=== PATIENT | female | born 1940 | race Caucasian/White ===

== ENCOUNTER → 2021-02-08 09:00 | Outpatient (BNVA) | payer MEDICARE, SELFPAY | PROVIDERS: PCP Internal Medicine; Referring Provider Internal Medicine; Visit Provider Surgery | DX: L72.0 Epidermal cyst (principal) | CPT/HCPCS: 99202 ==

== ENCOUNTER 2021-02-25 19:05 | Inpatient (IN) | payer MEDICARE, SELFPAY ==
--- NOTE | 2021-02-25 | ECG_ITS ---
Test Reason : DYSPNEA Blood Pressure : / mmHG Vent. Rate : 113 BPM Atrial Rate : 113 BPM P-R Int : 126 ms QRS Dur : 074 ms QT Int : 330 ms P-R-T Axes : -13 000 -03 degrees QTc Int : 452 ms Sinus tachycardia with occasional Premature ventricular complexes Nonspecific ST and T wave abnormality Abnormal ECG When compared with ECG of 02-DEC-2015 14:33, Premature ventricular complexes are now Present Criteria for Anteroseptal infarct are no longer Present ST now depressed in Inferior leads Nonspecific T wave abnormality, worse in Inferior leads Nonspecific T wave abnormality now evident in Lateral leads Referred By: Jacob Mccauley Electronically Signed By:LEVI MULLEN
--- NOTE | ~2021-02-25 | XR_ITS ---
EXAMINATION: XR CHEST CLINICAL INFORMATION: Shortness of breath. COMPARISON: 02/26/2021 chest radiographs. TECHNIQUE: Frontal view of the chest was obtained. FINDINGS: Kyphotic positioning is suboptimal. Mild left basilar linear markings are seen. The right lung is clear. The heart and mediastinal structures are unremarkable. XR/XR chest 1V IMPRESSION: Mild left basilar linear atelectasis versus scarring.
--- NOTE | ~2021-02-25 | XR_ITS ---
EXAMINATION: XR CHEST CLINICAL INFORMATION: Wheezing with rales and rhonchi on the right. COMPARISON: 08/05/2019 TECHNIQUE: 2 views of the chest were obtained. FINDINGS: Cardiac leads overlie the chest. The lungs are well expanded. Bronchial wall thickening noted. There is no focal consolidation, edema, or effusion. No pneumothorax. The cardiomediastinal silhouette is within normal limits. No acute osseous abnormality. Degenerative changes of the shoulders. Possible intra-articular body at the left inferior glenohumeral recesses. XR/XR chest 2V IMPRESSION: No dense consolidation. Bronchial wall thickening can be seen with a small airways process such as asthma or atypical/viral infection.
[2021-02-25 20:31] LABS: COVID-19 Test Negative (Negative)
[2021-02-25 21:21] VITALS: BP 141/75; PULSE 109; RESP 22; TEMP 37.4; O2SAT 93; BMI 26.4
[2021-02-25 21:51] LABS: Basophils Percent Auto 0.1 % (0-2); Hematocrit 38.9 % (37-47); Hemoglobin 12.5 g/dl (12.0-16.0); Imm Gran Abs Auto 0.31 X10*3/uL (0.00-0.03); Imm Gran Pct Auto 1.2 % (0.0-0.4); Lymphocytes Absolute Auto 1.6 X10*3/uL (1.2-4.9); Lymphocytes Percent Auto 6.4 % (20-40); MANUAL DIFF FLAG SCAN; Mean Corpuscular HGB Conc 32.1 g/dl (31.0-35.0); Mean Platelet Volume 10.7 fL (9.4-12.3); Monocytes Absolute Auto 2.1 X10*3/uL (0.1-1.2); Monocytes Percent Auto 8.4 % (2-11); Neutrophils Absolute Auto 21.4 X10*3/uL (2.0-8.3); Neutrophils Percent Auto 83.9 % (45-73); Platelet Count 360 X10*3/uL (160-400); Red Blood Count 4.47 X10*6/uL (4.20-5.50); Red Cell Distribution Width 13.4 % (11.0-16.0); SCAN SMEAR FLAG 1; White Blood Count 25.6 X10*3/uL (4.8-10.8)
[2021-02-25 22:17] LABS: Alanine Aminotransferase 29 U/L (0-31); Albumin Level 3.9 g/dL (3.5-5.0); Alkaline Phosphatase 97 U/L (39-117); Anion Gap 19 (12-20); Aspartate Amino Transferase 15 U/L (5-31); Bilirubin Total 0.7 mg/dL (0.0-1.0); Blood Urea Nitrogen 40 mg/dL (9-16); Calcium 9.5 mg/dL (8.4-10.2); Carbon Dioxide 26 mmol/L (22-29); Chloride 98 mmol/L (96-108); Creatinine Clr Calc Pharmacy 24.7; Estimated Glomerular Filt Rate 37; Glucose Random 407 mg/dL (60-115); Potassium 3.5 mmol/L (3.3-5.1); Sodium 139 mmol/L (135-145); Total Protein 7.3 g/dL (6.5-8.0)
[2021-02-25 22:30] VITALS: BP 158/93; PULSE 116; RESP 20; TEMP 37.1; O2SAT 97
--- NOTE | 2021-02-25 22:42 | ED.SOB ---
HPI - SOB/Dyspnea General Chief Complaint: Dyspnea Stated Complaint: Difficulty breathing Time Seen by Provider: 02/25/21 22:42 Source: patient Mode of arrival: ambulatory Limitations: no limitations History of Present Illness HPI Narrative: Few weeks of increased shortness of breath, now on day 6 of prednisone. patient believes the heat has triggered her shortness of breath. patient is not on oxygen at home. MD elicited complaint: shortness of breath and cough Pertinent past history: COPD, asthma and diabetes Onset (ago): week(s) Timing: constant Severity: moderate Exacerbating factors: exertion Known history of: COPD and asthma Related Data Home Medications Medication Instructions Recorded Confirmed albuterol sulfate 90 mcg/actuation 2 puff PO Q6H PRN 02/25/21 02/25/21 aerosol inhaler budesonide-formoterol HFA 160 2 puff INHALATION BID 02/25/21 02/25/21 mcg-4.5 mcg/actuation aerosol inhaler (Symbicort) glipizide 2.5 mg tablet, extended 1 tab PO DAILY 02/25/21 02/25/21 release 24 hr hydrochlorothiazide 50 mg tablet 1 tab PO DAILY 02/25/21 02/25/21 losartan 25 mg tablet 1 tab PO BID 02/25/21 02/25/21 Allergies Allergy/AdvReac Type Severity Reaction Status Date / Time latex [LATEX] Allergy Severe RASH, Verified 02/08/21 09:12 DIFFICULTY BREATHING cortisone [Cortisone] Allergy Mild HIVES Verified 02/08/21 09:12 prednisone [PREDNISONE] Allergy Mild RASH, Verified 02/08/21 09:12 rash- has taken this med since without reaction Review of Systems Constitutional: Constitutional: Reports no additional constitutional complaints Eyes: Eyes: Reports no additional eye complaints ENT: Denies dizziness Cardiovascular: Cardiovascular: Reports no additional cardiovascular complaints Respiratory: Respiratory: Reports as per HPI Gastrointestinal: Gastrointestinal: Reports no additional gastrointestinal complaints Genitourinary: Genitourinary: Reports no additional female genitourinary complaints Musculoskeletal: Musculoskeletal: Reports no additional musculoskeletal complaints Integumentary/Breasts: Skin/Breast: Denies rash Neurologic: Reports system reviewed and no additional complaints, except as documented, Denies dizziness and Denies Sensory deficit (Neuro) Psychiatric: Psychiatric: Denies anxiety PMFSH Past Medical History Medical History Asthma Benign essential hypertension Diabetes mellitus Epidermoid cyst of face Hyperlipidemia Low back pain Overweight (BMI 25.0-29.9) Surgical History History of breast lump/mass excision Status post re-excision of malignant skin lesion Family History Family History Sister Breast cancer Other Family history unknown Social History Social History Alcohol intake: never Patient Tobacco Use Status: Never used Tobacco Smoked in Last 30 Days: No Use of substances other than those prescribed or required for medical reasons: No Advance Directives: No Advance Directives Information Provided: Yes Physical Exam Vital Signs: Vital Signs: Last Vital Signs Temp 98.7 F 02/25/21 22:30 Pulse 131 H 02/26/21 02:01 Resp 28 H 02/26/21 02:01 BP 140/88 H 02/26/21 02:01 Pulse Ox 90 L 02/26/21 02:01 Body Mass Index 26.4 Const: Other: elderly female very short of breath, coughing and wheezing Nutritional Appearance: average body habitus Orientation/consciousness: oriented to person and patient oriented x3 Limitations: no limitations HENMT: Head: Yes normal to inspection Ears: external ears normal General nose exam: Normal external nose present Mouth: Normal oral and palatal mucosa present and oropharynx normal Throat: Yes posterior oropharynx normal Eyes: General: appearance normal, both eyes and all related structures Neck: Other: supple Neck: Yes normal visual inspection Chest: Chest palpation & inspection: normal inspection of the chest Resp: Other: slight retractions with diffuse wheezing, rales and rhonchi on the right much worse than mild wheezing on the left. Cardio: Jugular venous distension: no JVD Rate: regular rate Rhythm: regular rhythm Heart sounds: S1 normal heart sound present and S2 normal heart sound present GI: Inspection: Yes normal to inspection Palpation (GI): Soft to palpation, nontender and No hepatosplenomegaly present Auscultation: normal bowel sounds : General: Yes no CVA tenderness Back/Spine/Pelvis: Back: no CVA tenderness Skin: General skin exam: no rashes or lesions noted Neuro: General: oriented to person and patient oriented x3 Cranial nerves: Yes CN's II-XII intact bilaterally Motor exam (neuro): 5/5 motor strength present throughout Sensory Exam: No Sensory deficit (Neuro) Extrem: General: Yes normal to inspection Psych: Appearance: grossly normal Course Reevaluation(s) Reevaluation #1: patient still very short of breath. Despite WBC of 25k and elevated glucose, I believe that these are all the result of prednisone and not sepsis. Will continue nebs and give ceftriaxone Time: 00:56 MDM - SOB/Dyspnea Lab Data Result diagrams: 02/25/21 21:45 02/25/21 21:45 Labs: Lab Results 02/25/21 02/25/21 02/25/21 Range/Units 20:12 21:45 21:45 WBC 25.6 H (4.8-10.8) X10*3/uL RBC 4.47 (4.20-5.50) X10*6/uL Hgb 12.5 (12.0-16.0) g/dl Hct 38.9 (37-47) % MCV 87.0 (80-98) fL MCH 28.0 (27.0-33.0) pg MCHC 32.1 (31.0-35.0) g/dl RDW 13.4 (11.0-16.0) % Plt Count 360 (160-400) X10*3/uL MPV 10.7 (9.4-12.3) fL Immature Gran % (Auto) 1.2 H (0.0-0.4) % Neut % (Auto) 83.9 H (45-73) % Lymph % (Auto) 6.4 L (20-40) % [place] % (Auto) 8.4 (2-11) % Eos % (Auto) 0.0 (0-4) % Baso % (Auto) 0.1 (0-2) % Lymph # (Auto) 1.6 (1.2-4.9) X10*3/uL [place] # (Auto) 2.1 H (0.1-1.2) X10*3/uL Eos # (Auto) 0.0 (0.0-0.4) X10*3/uL Baso # (Auto) 0.0 (0.0-0.2) X10*3/uL Abs Immat Gran (auto) 0.31 H (0.00-0.03) X10*3/uL Absolute Neuts (auto) 21.4 H (2.0-8.3) X10*3/uL Absolute Nucleated RBC 0.000 (0.0-0.012) X10*3/uL Nucleated RBC % (auto) 0.0 (0.0-0.2) /100WBC Smear Tech's Comments VERIFIED Sodium 139 (135-145) mmol/L Potassium 3.5 (3.3-5.1) mmol/L Chloride 98 (96-108) mmol/L Carbon Dioxide 26 (22-29) mmol/L Anion Gap 19 (12-20) BUN 40 H (9-16) mg/dL Creatinine 1.37 (0.5-1.4) mg/dL Estim Creat Clear Calc 24.7 Estimated GFR 37 POC Glucose (60-115) mg/dL Random Glucose 407 H* (60-115) mg/dL Calcium 9.5 (8.4-10.2) mg/dL Total Bilirubin 0.7 (0.0-1.0) mg/dL AST 15 (5-31) U/L ALT 29 (0-31) U/L Alkaline Phosphatase 97 (39-117) U/L Total Protein 7.3 (6.5-8.0) g/dL Albumin 3.9 (3.5-5.0) g/dL COVID-19 ([place]) Negative (Negative) COVID-19 Clin Com See Note 02/25/21 02/26/21 Range/Units 23:12 01:17 WBC (4.8-10.8) X10*3/uL RBC (4.20-5.50) X10*6/uL Hgb (12.0-16.0) g/dl Hct (37-47) % MCV (80-98) fL MCH (27.0-33.0) pg MCHC (31.0-35.0) g/dl RDW (11.0-16.0) % Plt Count (160-400) X10*3/uL MPV (9.4-12.3) fL Immature Gran % (Auto) (0.0-0.4) % Neut % (Auto) (45-73) % Lymph % (Auto) (20-40) % [place] % (Auto) (2-11) % Eos % (Auto) (0-4) % Baso % (Auto) (0-2) % Lymph # (Auto) (1.2-4.9) X10*3/uL [place] # (Auto) (0.1-1.2) X10*3/uL Eos # (Auto) (0.0-0.4) X10*3/uL Baso # (Auto) (0.0-0.2) X10*3/uL Abs Immat Gran (auto) (0.00-0.03) X10*3/uL Absolute Neuts (auto) (2.0-8.3) X10*3/uL Absolute Nucleated RBC (0.0-0.012) X10*3/uL Nucleated RBC % (auto) (0.0-0.2) /100WBC Smear Tech's Comments Sodium (135-145) mmol/L Potassium (3.3-5.1) mmol/L Chloride (96-108) mmol/L Carbon Dioxide (22-29) mmol/L Anion Gap (12-20) BUN (9-16) mg/dL Creatinine (0.5-1.4) mg/dL Estim Creat Clear Calc Estimated GFR POC Glucose 334 H 214 H (60-115) mg/dL Random Glucose (60-115) mg/dL Calcium (8.4-10.2) mg/dL Total Bilirubin (0.0-1.0) mg/dL AST (5-31) U/L ALT (0-31) U/L Alkaline Phosphatase (39-117) U/L Total Protein (6.5-8.0) g/dL Albumin (3.5-5.0) g/dL COVID-19 ([place]) (Negative) COVID-19 Clin Com Imaging Data Chest x-ray: Radiologist's impression: IMPRESSION: No dense consolidation. Bronchial wall thickening can be seen with a small airways process such as asthma or atypical/viral infection. ECG Data Attestation: I personally reviewed and interpreted this ECG as follows: Interpretation: sinus rate of 110, PvCs, no st or twave changes Discharge Plan Discharge Clinical Impression: Asthma Qualifiers: Asthma severity: moderate Asthma persistence: persistent Asthma complication type: with acute exacerbation Qualified Code(s): J45.41 - Moderate persistent asthma with (acute) exacerbation Chronic obstructive airway disease Qualifiers: COPD type: COPD with acute exacerbation Qualified Code(s): J44.1 - Chronic obstructive pulmonary disease with (acute) exacerbation Patient Disposition: Admitted As Inpatient
[2021-02-25 22:43] LABS: SLIDE REVIEW VERIFIED
[2021-02-25] MEDS: methylPREDNISolone Sod Succ 125 MG/2 ML VIAL IVPUSH (23:13)
[2021-02-25] MEDS: Insulin Lispro 100 UNIT/ML 3 ML VIAL 10 UNIT SUBCUT (23:14)
[2021-02-25] MEDS: Albuterol/Iprat 2.5/0.5MG 3 ML AMPUL.NEB INHALE (23:31)
[2021-02-25 23:32] VITALS: PULSE 109; O2SAT 91
[2021-02-26] VITALS (17 sets, daily range): BP systolic 122–152; BP diastolic 52–88; PULSE 108–131; RESP 20–28; TEMP 36.4–37.1; O2SAT 90–98
[2021-02-26 00:40] LABS: Glucose, Whole Blood 334 mg/dL (60-115)
[2021-02-26] MEDS: Albuterol Sulfate (0.083%) 2.5 MG/3 ML VIAL.NEB 10 MG INHALE (01:08)
[2021-02-26] MEDS: cefTRIAXone sodium 1 GM in 0.9 % Sodium Chloride 50 ML IV (01:11)
--- NOTE | 2021-02-26 01:20 | PC.NURSE ---
POC 214 LEANDRA tucker.
[2021-02-26 01:22] LABS: Glucose, Whole Blood 214 mg/dL (60-115)
--- NOTE | 2021-02-26 02:13 | PM.IMHP ---
History of Present Illness Date of Service: 02/26/21 Chief Complaint: Shortness of breath 6-year-old female with history of asthma, hypertension, diabetes mellitus, hyperlipidemia, who presented with worsening shortness of breath. History is from the patient and from ED notes. Patient endorses that for the past 2 weeks, she has been having worsening shortness of breath and wheezing. She also has cough productive of green sputum, left-sided chest pain associated with cough, and has had some episodes of diarrhea. She has some steroids at home that she can take when these flares happen, therefore she started taking steroids about 6 days ago, but came to the ED because of ongoing symptoms. She denies fever, chills, nausea or vomiting, abdominal pain. In the ED, vitals were significant for tachypnea with a respiratory rate of 28, tachycardic in the 120s, satting 90% on room air. Pertinent labs include: WBC of 25.6, glucose 407, COVID negative. Chest x-ray revealed no dense consolidation. The patient was treated with steroids for asthma exacerbation. Review of Systems Constitutional: Constitutional: Denies chills, Denies fatigue, Denies fever(s), Denies headache(s), Denies weakness and Denies weight loss Eyes: Eyes: Denies blurry vision, Denies change in vision, Denies diplopia and Denies loss of vision ENT: Denies dysphagia, Denies vertigo, Denies dizziness, Denies headache(s), Denies hearing loss, Denies lip swelling and Denies sore throat Cardiovascular: Cardiovascular: Reports chest pain (associated with coughing), Denies leg edema, Denies lightheadedness, Denies palpitations and Reports dyspnea Respiratory: Respiratory: Denies no additional respiratory complaints, Reports change in phlegm color (green sputum), Reports cough, Reports dyspnea and Reports wheezing Gastrointestinal: Gastrointestinal: Denies coffee ground emesis, Denies constipation, Denies dysphagia, Reports diarrhea, Denies nausea and Denies vomiting Genitourinary: Genitourinary: Denies dysuria Musculoskeletal: Musculoskeletal: Denies arthralgias, Denies muscle weakness, Denies numbness and Denies tingling Integumentary/Breasts: Skin/Breast: Denies bleeding lesions, Denies new lesions and Denies rash Neurologic: Denies vertigo, Denies dizziness, Denies headache(s), Denies loss of vision, Denies numbness, Denies tingling and Denies weakness Psychiatric: Psychiatric: Denies anxiety and Denies depression Endocrine: Endocrine: Denies cold intolerance, Denies fatigue, Denies heat intolerance and Denies palpitations Hematologic/Lymphatic: Hematologic/Lymphatic: Denies easy bleeding, Denies easy bruising and Denies lymphadenopathy Allergic/Immunologic: Allergic/Immunologic: Denies lip swelling and Reports wheezing [facility] Medical History Asthma Benign essential hypertension Diabetes mellitus Epidermoid cyst of face Hyperlipidemia Low back pain Overweight (BMI 25.0-29.9) Family History Sister Breast cancer Other Family history unknown Surgical History History of breast lump/mass excision Status post re-excision of malignant skin lesion Social History Alcohol intake: never Patient Tobacco Use Status: Never used Tobacco Smoked in Last 30 Days: No Use of substances other than those prescribed or required for medical reasons: No Advance Directives: No Advance Directives Information Provided: Yes Meds Allergies Allergy/AdvReac Type Severity Reaction Status Date / Time latex [LATEX] Allergy Severe RASH, Verified 02/08/21 09:12 DIFFICULTY BREATHING cortisone [Cortisone] Allergy Mild HIVES Verified 02/08/21 09:12 prednisone [PREDNISONE] Allergy Mild RASH, Verified 02/08/21 09:12 rash- has taken this med since without reaction Active Medications: Current Medications Generic Name Dose Route Start Last Admin Trade Name Freq PRN Reason Stop Dose Admin Acetaminophen 650 mg 02/26/21 02:00 Acetaminophen 325 Mg Tablet PO Q6H PRN Pain, Mild (Pain Scale 1-3) Albuterol/Ipratropium 3 ml 02/26/21 08:00 Albuterol/Iprat 2.5/0.5mg 3 Ml Ampul.Neb INHALE RQ6H WHILE AWAKE FAINA Albuterol/Ipratropium 3 ml 02/26/21 02:04 Albuterol/Iprat 2.5/0.5mg 3 Ml Ampul.Neb INHALE RQ4H PRN Shortness of Breath/Wheezing Hydrochlorothiazide 50 mg 02/26/21 09:00 Hydrochlorothiazide 50 Mg Tablet PO DAILY [facility] Protocol Azithromycin 500 mg/ Sodium 250 mls @ 125 mls/hr 02/26/21 09:00 Chloride IV DAILY [facility] Losartan Potassium 25 mg 02/26/21 09:00 Losartan Potassium 25 Mg Tablet PO BID [facility] Protocol Methylprednisolone Sodium Succinate 60 mg 02/26/21 08:00 Methylprednisolone Sod Succ 125 Mg/2 Ml Vial IVPUSH Q6H [facility] Non-Formulary Medication 2 puff 02/26/21 09:00 Budesonide-Formoterol [Symbicort] INHALE BID [facility] Pantoprazole Sodium 40 mg 02/26/21 06:30 Pantoprazole Sodium 40 Mg/10 Ml Vial IVPUSH BID@0630,1630 [facility] Sodium Chloride 3 ml 02/26/21 08:00 0.9 % Sodium Chloride Flush 3 Ml Syringe IVFLUSH QSHIFT [facility] Home Medications Medication Instructions Recorded Confirmed Last Taken Type albuterol sulfate 90 mcg/actuation 2 puff PO Q6H PRN 02/25/21 02/25/21 Unknown History aerosol inhaler budesonide-formoterol HFA 160 2 puff INHALATION BID 02/25/21 02/25/21 Unknown History mcg-4.5 mcg/actuation aerosol inhaler (Symbicort) glipizide 2.5 mg tablet, extended 1 tab PO DAILY 02/25/21 02/25/21 Unknown History release 24 hr hydrochlorothiazide 50 mg tablet 1 tab PO DAILY 02/25/21 02/25/21 Unknown History losartan 25 mg tablet 1 tab PO BID 02/25/21 02/25/21 Unknown History Physical Exam Vital Signs and Narrative: Vital Signs: Last Vital Signs Temp 98.7 F 02/25/21 22:30 Pulse 131 H 02/26/21 02:01 Resp 28 H 02/26/21 02:01 BP 140/88 H 02/26/21 02:01 Pulse Ox 90 L 02/26/21 02:01 Body Mass Index 26.4 Const: General: well developed, alert and in distress mild and respiratory HENMT: Face and sinus: Yes normal facial exam and Yes face symmetric Mouth: Normal oral and palatal mucosa present and moist mucous membranes Throat: Yes posterior oropharynx normal and Yes tonsils normal Eyes: General: appearance normal, both eyes and all related structures Alignment and Position: alignment normal and position normal Sclerae: sclerae normal Pupils: Equal, round and reactive pupils present EOM: EOMs intact bilaterally Neck: Yes normal visual inspection, Yes full ROM and Yes no lymphadenopathy Lymphatic: no lymphadenopathy noted Chest: Other: Sinus tachycardia Resp: Effort & Inspection: not able to speak in complete sentences and respiratory distress Auscultation: no crackles, no rales, no rhonchi, wheezes and diminished lung sounds Cardio: Rate: tachycardic Rhythm: regular rhythm Heart sounds: S1 normal heart sound present, S2 normal heart sound present, no murmurs and no rubs GI: Inspection: No distended Palpation (GI): Soft to palpation and nontender Percussion: No tympanic to percussion Auscultation: normal bowel sounds Skin: Rashes: no rashes Trauma: no lacerations or abrasions Wounds: no wounds Neuro: Cranial nerves: Yes CN's II-XII intact bilaterally, Yes Equal, round and reactive pupils present and Yes Bilaterally intact EOM present Extrem: General: Yes full ROM and Yes no pedal edema Psych: Appearance: grossly normal Mental Status: mental status grossly normal Speech and movement: Normal speech and movement present Affect: normal affect Thought process: Normal thought process present Results Labs CBC and Chem 7: 02/25/21 21:45 02/25/21 21:45 Labs: Laboratory Results - last 24 hr 02/25/21 02/25/21 02/25/21 20:12 21:45 21:45 MCV 87.0 MCH 28.0 MCHC 32.1 RDW 13.4 Plt Count 360 MPV 10.7 Immature Gran % (Auto) 1.2 H Neut % (Auto) 83.9 H Lymph % (Auto) 6.4 L [place] % (Auto) 8.4 Eos % (Auto) 0.0 Baso % (Auto) 0.1 Lymph # (Auto) 1.6 [place] # (Auto) 2.1 H Eos # (Auto) 0.0 Baso # (Auto) 0.0 Abs Immat Gran (auto) 0.31 H Absolute Neuts (auto) 21.4 H Absolute Nucleated RBC 0.000 Nucleated RBC % (auto) 0.0 Smear Tech's Comments VERIFIED Anion Gap 19 Estim Creat Clear Calc 24.7 Estimated GFR 37 POC Glucose Random Glucose 407 H* Calcium 9.5 Total Bilirubin 0.7 AST 15 ALT 29 Alkaline Phosphatase 97 Total Protein 7.3 Albumin 3.9 COVID-19 ([place]) Negative COVID-19 Clin Com See Note 02/25/21 02/26/21 23:12 01:17 MCV MCH MCHC RDW Plt Count MPV Immature Gran % (Auto) Neut % (Auto) Lymph % (Auto) [place] % (Auto) Eos % (Auto) Baso % (Auto) Lymph # (Auto) [place] # (Auto) Eos # (Auto) Baso # (Auto) Abs Immat Gran (auto) Absolute Neuts (auto) Absolute Nucleated RBC Nucleated RBC % (auto) Smear Tech's Comments Anion Gap Estim Creat Clear Calc Estimated GFR POC Glucose 334 H 214 H Random Glucose Calcium Total Bilirubin AST ALT Alkaline Phosphatase Total Protein Albumin COVID-19 ([place]) COVID-19 Clin Com Imaging Radiologist's Impressions: Impressions Chest X-Ray 02/25/21 22:49 IMPRESSION: No dense consolidation. Bronchial wall thickening can be seen with a small airways process such as asthma or atypical/viral infection. 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 insulin use: without custodial use Diabetes mellitus complication status: without complication Qualified Code(s): E11.9 - Type 2 diabetes mellitus without complications Status: Acute (5) Hyperlipidemia: Qualifiers: Hyperlipidemia type: pure hypercholesterolemia Qualified Code(s): E78.00 - Pure hypercholesterolemia, unspecified Status: Acute (6) Benign essential hypertension: Status: Acute Asthma exacerbation: -continue Solu-Medrol, DuoNebs every 6 hours schedule, DuoNebs as needed for wheezing and shortness of breath -ordered doxycycline -currently she is satting well on room air, but she does have respiratory distress Tachycardia: -likely secondary to breathing treatments, and her increased work of breathing Leukocytosis: -likely secondary to her steroids and respiratory distress -chest x-ray was negative for dense consolidation -COVID negative -ordered doxycycline Diabetes mellitus: -holding home oral glipizide -insulin sliding scale with blood sugar checks Hyperlipidemia: -continue all medications Hypertension: -continue medications FEN: Cardiac diet CODE STATUS: FULL CODE DISPO: Admit to Observation Quality Stroke Does the patient have a stroke diagnosis?: No VTE Prior VTE?: No VTE Risk Level:: Medical - low VTE Device Contraindication: N/A - Device Ordered VTE Drug Contraindication: Treatment Not Indicated
[2021-02-26] MEDS: Doxycycline Hyclate 100 MG in 0.9 % Sodium Chloride 250 ML 166.67 MG IV ×2 (02:58→15:34)
[2021-02-26 05:25] LABS: Basophils Percent Auto 0.1 % (0-2); Hematocrit 34.8 % (37-47); Hemoglobin 11.2 g/dl (12.0-16.0); Imm Gran Abs Auto 0.24 X10*3/uL (0.00-0.03); Imm Gran Pct Auto 1.1 % (0.0-0.4); Lymphocytes Absolute Auto 0.5 X10*3/uL (1.2-4.9); Lymphocytes Percent Auto 2.3 % (20-40); MANUAL DIFF FLAG SCAN; Mean Corpuscular HGB Conc 32.2 g/dl (31.0-35.0); Mean Corpuscular Hemoglobin 27.8 pg (27.0-33.0); Mean Corpuscular Volume 86.4 fL (80-98); Mean Platelet Volume 10.6 fL (9.4-12.3); Monocytes Percent Auto 4.4 % (2-11); Neutrophils Absolute Auto 20.9 X10*3/uL (2.0-8.3); Neutrophils Percent Auto 92.1 % (45-73); Platelet Count 297 X10*3/uL (160-400); Red Blood Count 4.03 X10*6/uL (4.20-5.50); Red Cell Distribution Width 13.5 % (11.0-16.0); SCAN SMEAR FLAG 1; White Blood Count 22.7 X10*3/uL (4.8-10.8)
[2021-02-26] MEDS: Pantoprazole Sodium 40 MG/10 ML VIAL IVPUSH (05:46)
[2021-02-26 05:49] LABS: Anion Gap 18 (12-20); Blood Urea Nitrogen 43 mg/dL (9-16); Calcium 9.1 mg/dL (8.4-10.2); Carbon Dioxide 25 mmol/L (22-29); Chloride 102 mmol/L (96-108); Creatinine Clr Calc Pharmacy 27.8; Estimated Glomerular Filt Rate 42; Glucose Random 306 mg/dL (60-115); Potassium 3.3 mmol/L (3.3-5.1); Sodium 142 mmol/L (135-145)
[2021-02-26] MEDS: Ipratropium Bromide 0.5 MG/2.5 ML SOLUTION INHALE ×4 (08:15→19:19)
--- NOTE | 2021-02-26 08:56 | HO.PM.IMPN ---
Subjective Subjective Date of Service: 02/26/21 Interval History: seen and examined this AM, boarding in the ED reports her breathing improved but still SOB reports cough productive of greenish sputum Review of Systems General - no fevers or chills Cardiovascular - no chest pain Respiratory - +cough/SOB Abdominal- no abdominal pain, nausea, vomiting, diarrhea Physical Exam Vital Signs: Vital Signs: Last Vital Signs Temp 98.7 F 02/25/21 22:30 Pulse 114 H 02/26/21 08:15 Resp 23 H 02/26/21 05:51 BP 142/73 H 02/26/21 05:51 Pulse Ox 94 02/26/21 05:51 Body Mass Index 26.4 Const: Other: General - no acute distress, appears comfortable at rest, mild resp. muscle usage with exertion / talking Cardiovascular - tachy in the 110s-120s Lungs - diminished air entry with scattered wet rales, no wheezing this AM Abdomen - soft, nontender, no rebound or guarding Extremities - no edema bilaterally Neuro - awake and alert, no focal deficits Objective Data Current Medications Generic Name Dose Route Start Last Admin Trade Name Freq PRN Reason Stop Dose Admin Acetaminophen 650 mg 02/26/21 02:00 Acetaminophen 325 Mg Tablet PO Q6H PRN Pain, Mild (Pain Scale 1-3) Dextrose 25 gm 02/26/21 02:21 Dextrose 50 % 25 Gm/50 Ml Vial IVPUSH Q15M PRN per Hypoglycemia Standing Ord. Protocol Fluticasone/Vilanterol 1 puff 02/26/21 09:00 02/26/21 08:27 Fluticasone/Vilanterol 200/25 Blst.W.Dev INHALE Not Given DAILY [facility] Glucose 15 gm 02/26/21 02:21 Glucose Gel 15 Gm Gel..Gram. PO Q15M PRN per Hypoglycemia Standing Ord. Protocol Hydrochlorothiazide 50 mg 02/26/21 09:00 Hydrochlorothiazide 50 Mg Tablet PO DAILY [facility] Protocol Doxycycline Hyclate 100 mg/ 250 mls @ 166.67 mls/hr 02/26/21 03:00 02/26/21 04:57 Sodium Chloride IV Infused Q12H [facility] Infusion Insulin Human Lispro 0 unit 02/26/21 07:30 Insulin Lispro 100 Unit/Ml 3 Ml Vial SUBCUT QIDACHS [facility] Protocol Ipratropium [place] 0.5 mg 02/26/21 08:00 08/21/21 08:15 Ipratropium [place] 0.5 Mg/2.5 Ml Solution INHALE 0.5 mg RQ4H WHILE AWAKE [facility] Administration Levalbuterol HCl 1.25 mg 02/26/21 08:00 02/26/21 08:15 Levalbuterol Hcl 1.25 Mg/0.5 Ml Vial.Neb INHALE 1.25 mg RQ4H WHILE AWAKE [facility] Administration Levalbuterol HCl 1.25 mg 02/26/21 07:59 Levalbuterol Hcl 1.25 Mg/0.5 Ml Vial.Neb INHALE Q3H PRN Shortness of Breath Losartan Potassium 25 mg 02/26/21 09:00 Losartan Potassium 25 Mg Tablet PO BID [facility] Protocol Methylprednisolone Sodium Succinate 40 mg 02/26/21 09:00 Methylprednisolone Sod Succ 40 Mg/Ml Vial IVPUSH BID [facility] Sodium Chloride 3 ml 02/26/21 08:00 0.9 % Sodium Chloride Flush 3 Ml Syringe IVFLUSH QSHIFT [facility] Labs CBC & Chem 7: 02/26/21 05:21 02/26/21 05:21 Labs: Laboratory Results - last 24 hr 02/25/21 02/25/21 02/25/21 20:12 21:45 21:45 MCV 87.0 MCH 28.0 MCHC 32.1 RDW 13.4 Plt Count 360 MPV 10.7 Immature Gran % (Auto) 1.2 H Neut % (Auto) 83.9 H Lymph % (Auto) 6.4 L [place] % (Auto) 8.4 Eos % (Auto) 0.0 Baso % (Auto) 0.1 Lymph # (Auto) 1.6 [place] # (Auto) 2.1 H Eos # (Auto) 0.0 Baso # (Auto) 0.0 Abs Immat Gran (auto) 0.31 H Absolute Neuts (auto) 21.4 H Absolute Nucleated RBC 0.000 Nucleated RBC % (auto) 0.0 Smear Tech's Comments VERIFIED Anion Gap 19 Estim Creat Clear Calc 24.7 Estimated GFR 37 POC Glucose Random Glucose 407 H* Calcium 9.5 Total Bilirubin 0.7 AST 15 ALT 29 Alkaline Phosphatase 97 Total Protein 7.3 Albumin 3.9 COVID-19 ([place]) Negative COVID-19 Clin Com See Note 02/25/21 02/26/2121 23:12 01:17 05:21 MCV 86.4 MCH 27.8 MCHC 32.2 RDW 13.5 Plt Count 297 MPV 10.6 Immature Gran % (Auto) 1.1 H Neut % (Auto) 92.1 H Lymph % (Auto) 2.3 L [place] % (Auto) 4.4 Eos % (Auto) 0.0 Baso % (Auto) 0.1 Lymph # (Auto) 0.5 L [place] # (Auto) 1.0 Eos # (Auto) 0.0 Baso # (Auto) 0.0 Abs Immat Gran (auto) 0.24 H Absolute Neuts (auto) 20.9 H Absolute Nucleated RBC 0.000 Nucleated RBC % (auto) 0.0 Smear Tech's Comments Anion Gap Estim Creat Clear Calc Estimated GFR POC Glucose 334 H 214 H Random Glucose Calcium Total Bilirubin AST ALT Alkaline Phosphatase Total Protein Albumin COVID-19 ([place]) COVID-19 Clin Com 02/26/21 05:21 MCV MCH MCHC RDW Plt Count MPV Immature Gran % (Auto) Neut % (Auto) Lymph % (Auto) [place] % (Auto) Eos % (Auto) Baso % (Auto) Lymph # (Auto) [place] # (Auto) Eos # (Auto) Baso # (Auto) Abs Immat Gran (auto) Absolute Neuts (auto) Absolute Nucleated RBC Nucleated RBC % (auto) Smear Tech's Comments Anion Gap 18 Estim Creat Clear Calc 27.8 Estimated GFR 42 POC Glucose Random Glucose 306 H Calcium 9.1 Total Bilirubin AST ALT Alkaline Phosphatase Total Protein Albumin COVID-19 ([place]) COVID-19 Clin Com Assessment and Plan (1) Asthma exacerbation: Status: Acute Assessment and Plan: This is an 80 yo F with a PMH of COPD/Asthma who presents to the hospital with progressive shortness of breath over the last 6-7 days. She reports that she had some prednisone at home which took as previously told by her PCP (30mg x 3 days and taper by 10) but she did not improve so she presented to the hospital. 1. Acute Asthma/COPD exacerbation possible bronchitis vs early pneumonia continue empiric doxycycline continue systemic steriods change DuoNebs to Xopenex / Atrovent due to tachycardia if not improved in an additional 24-48 hours, repeat imaging and consider pulm consult her Luekocytosis likely related to prednisone use at home and tachycardia due to bronchodilators and NOT severe sepsis 2. DM hold oral meds sliding scale 3. HTN continue home meds Full Code DVT pptx, start Lovenox Due to the severity of her presentation and on going symptoms, I anticipate at least an additional 48 hours more in the hospital. Quality Stroke Does the patient have a stroke diagnosis?: No VTE Prior VTE?: No VTE Risk Level:: Medical - low VTE Device Contraindication: N/A - Device Ordered VTE Drug Contraindication: Treatment Not Indicated
[2021-02-26 10:31] LABS: Glucose, Whole Blood 358 mg/dL (60-115)
[2021-02-26] MEDS: hydroCHLOROthiazide 50 MG TABLET PO (10:52)
[2021-02-26] MEDS: Losartan Potassium 25 MG TABLET PO ×2 (10:52→21:58)
[2021-02-26] MEDS: methylPREDNISolone Sod Succ 40 MG/ML VIAL IVPUSH ×2 (10:53→21:58)
[2021-02-26] MEDS: Insulin Lispro 100 UNIT/ML 3 ML VIAL SUBCUT ×4 (10:53→22:11)
[2021-02-26] MEDS: Enoxaparin Sodium 40 MG/0.4 ML SYRINGE SUBCUT (10:53)
--- NOTE | 2021-02-26 11:49 | PC.NURSE ---
Report taken from LEANDRA Albarran. Pt A&O, cooperative, resting in bed awaiting bed assignment. Pt aware of plan. Pt ate about half of breakfast, reported it was difficult to eat the eggs. Pt had increased work of breathing during breakfast. Respiratory currently with pt stated her on a breathing treatment.
[2021-02-26 13:12] LABS: Glucose, Whole Blood 318 mg/dL (60-115)
--- NOTE | 2021-02-26 13:31 | PC.NURSE ---
breakfast brought late and morning insulin given with breakfast at 11AM. recheck of POC at 1315 pt POC was 318. Will re-check POC at 1430 and administer appropriate insulin dosage at that time. pt had poor PO intake of breakfast and denies wanting to eat lunch or any other snack.
[2021-02-26] MEDS: 0.9 % Sodium Chloride Flush 3 ML SYRINGE IVFLUSH ×2 (13:38→23:35)
[2021-02-26 14:41] LABS: Glucose, Whole Blood 277 mg/dL (60-115)
--- NOTE | 2021-02-26 14:47 | PC.NURSE ---
1130 insulin given at 1447 following late admin on AM insulin. 1430 POC 277 pt getting 6 units of insulin Lispro
[2021-02-26 18:22] LABS: Glucose, Whole Blood 213 mg/dL (60-115)
--- NOTE | 2021-02-26 21:23 | PC.NURSE ---
Addendum entered by Muriel Mckoy RN 02/26/21 21:24: pt given dental hygiene products. Original Note: pt refused dinner. Ate two diabetic puddings and a jello. She continues to wait for bed assignment. pt calm and cooperative, resting in bed.
[2021-02-26 21:41] LABS: Glucose, Whole Blood 229 mg/dL (60-115)
[2021-02-27] VITALS (10 sets, daily range): BP systolic 113–140; BP diastolic 56–69; PULSE 95–110; RESP 18–20; TEMP 36.2–36.9; O2SAT 91–98
[2021-02-27] MEDS: Doxycycline Hyclate 100 MG in 0.9 % Sodium Chloride 250 ML 166.67 MG IV ×2 (02:47→15:01)
[2021-02-27 06:31] LABS: Hematocrit 34.1 % (37-47); Hemoglobin 10.9 g/dl (12.0-16.0); Mean Corpuscular Hemoglobin 27.9 pg (27.0-33.0); Mean Corpuscular Volume 87.4 fL (80-98); Platelet Count 327 X10*3/uL (160-400); Red Cell Distribution Width 13.7 % (11.0-16.0); White Blood Count 21.5 X10*3/uL (4.8-10.8)
[2021-02-27 07:29] LABS: Glucose, Whole Blood 173 mg/dL (60-115)
[2021-02-27] MEDS: guaiFEN/Codeine SF 200/20/10ML 10 ML LIQUID 5 ML PO ×2 (08:01→14:07)
[2021-02-27] MEDS: methylPREDNISolone Sod Succ 40 MG/ML VIAL IVPUSH ×2 (08:01→20:34)
[2021-02-27] MEDS: Losartan Potassium 25 MG TABLET PO ×2 (08:02→20:34)
[2021-02-27] MEDS: Insulin Lispro 100 UNIT/ML 3 ML VIAL SUBCUT ×4 (08:03→20:40)
[2021-02-27] MEDS: hydroCHLOROthiazide 50 MG TABLET PO (08:03)
[2021-02-27] MEDS: 0.9 % Sodium Chloride Flush 3 ML SYRINGE IVFLUSH ×2 (08:04→15:02)
--- NOTE | 2021-02-27 08:12 | PM.IMPN ---
Progress Note: A&P (1) Chronic obstructive airway disease: Status: Acute Assessment and Plan: This is an 80 yo F with a PMH of COPD/Asthma who presents to the hospital with progressive shortness of breath over the last 6-7 days. She reports that she had some prednisone at home which took as previously told by her PCP (30mg x 3 days and taper by 10) but she did not improve so she presented to the hospital. Acute Asthma/COPD exacerbation possible bronchitis vs early pneumonia continue empiric doxycycline continue systemic steriods change DuoNebs to Xopenex / Atrovent due to tachycardia her Luekocytosis likely related to prednisone use at home and tachycardia due to bronchodilators and NOT severe sepsis Mucinex for dry cough DM hold oral meds sliding scale HTN continue home meds Full Code DVT pptx, start Lovenox Due to the severity of her presentation and on going symptoms, I anticipate at least an additional 48 hours more in the hospital. Subjective Subjective Date of Service: 02/27/21 Interval History: Follow up asthma/copd exacerbation still with some sob and dry cough Physical Exam Vital Signs: Vital Signs: Last Vital Signs Temp 97.3 F 02/27/21 07:55 Pulse 103 H 02/27/21 07:55 Resp 18 02/27/21 07:55 BP 113/64 02/27/21 07:55 Pulse Ox 91 L 02/27/21 07:55 Body Mass Index 26.4 Appearing in no acute distress lung sounds exp wheezes heart regular rate rhythm, clear S1, S2 positive bowel sounds, abdomen is soft, nontender neuro patient is alert x3, no focal deficits Objective Data Current Medications Generic Name Dose Route Start Last Admin Trade Name Freq PRN Reason Stop Dose Admin Acetaminophen 650 mg 02/26/21 02:00 Acetaminophen 325 Mg Tablet PO Q6H PRN Pain, Mild (Pain Scale 1-3) Dextrose 25 gm 02/26/21 02:21 Dextrose 50 % 25 Gm/50 Ml Vial IVPUSH Q15M PRN per Hypoglycemia Standing Ord. Protocol Enoxaparin Sodium 30 mg 02/27/21 10:00 Enoxaparin Sodium 30 Mg/0.3 Ml Syringe SUBCUT Q24H [facility] Fluticasone/Vilanterol 1 puff 02/27/21 08:00 Fluticasone/Vilanterol 200/25 Blst.W.Dev INHALE RDAILY [facility] Glucose 15 gm 02/26/21 02:21 Glucose Gel 15 Gm Gel..Gram. PO Q15M PRN per Hypoglycemia Standing Ord. Protocol Guaifenesin/Codeine Phosphate 5 ml 02/27/21 06:49 Guaifen/Codeine Sf 200/20/10ml 10 Ml Liquid PO Q6H PRN Cough Hydrochlorothiazide 50 mg 02/26/21 09:00 02/26/21 10:52 Hydrochlorothiazide 50 Mg Tablet PO 50 mg DAILY [facility] Administration Protocol Doxycycline Hyclate 100 mg/ 250 mls @ 166.67 mls/hr 02/26/21 03:00 02/27/21 04:37 Sodium Chloride IV Infused Q12H [facility] Infusion Insulin Human Lispro 0 unit 02/26/21 07:30 02/26/21 22:11 Insulin Lispro 100 Unit/Ml 3 Ml Vial SUBCUT 4 unit QIDACHS [facility] Administration Protocol Ipratropium [place] 0.5 mg 02/26/21 08:00 02/26/21 19:19 Ipratropium [place] 0.5 Mg/2.5 Ml Solution INHALE 0.5 mg RQ4H WHILE AWAKE [facility] Administration Levalbuterol HCl 1.25 mg 02/26/21 08:00 02/27/21 05:55 Levalbuterol Hcl 1.25 Mg/0.5 Ml Vial.Neb INHALE 1.25 mg RQ4H WHILE AWAKE [facility] Administration Levalbuterol HCl 1.25 mg 02/26/21 07:59 Levalbuterol Hcl 1.25 Mg/0.5 Ml Vial.Neb INHALE Q3H PRN Shortness of Breath Losartan Potassium 25 mg 02/26/21 09:00 02/26/21 21:58 Losartan Potassium 25 Mg Tablet PO 25 mg BID [facility] Administration Protocol Methylprednisolone Sodium Succinate 40 mg 02/26/21 09:00 02/26/21 21:58 Methylprednisolone Sod Succ 40 Mg/Ml Vial IVPUSH 40 mg BID [facility] Administration Sodium Chloride 3 ml 02/26/21 08:00 02/26/21 23:35 0.9 % Sodium Chloride Flush 3 Ml Syringe IVFLUSH 3 ml QSHIFT [facility] Administration Labs CBC & Chem 7: 02/27/21 06:04 02/26/21 05:21 Labs: Laboratory Results - last 24 hr 02/26/21 02/26/21 02/26/21 05:21 10:28 13:08 MCV MCH MCHC RDW Plt Count MPV Absolute Nucleated RBC Nucleated RBC % (auto) POC Glucose 358 H* 318 H B-Natriuretic Peptide TNP 02/26/21 02/26/21 02/26/21 14:36 18:14 21:37 MCV MCH MCHC RDW Plt Count MPV Absolute Nucleated RBC Nucleated RBC % (auto) POC Glucose 277 H 213 H 229 H B-Natriuretic Peptide 02/27/21 02/27/21 06:04 07:16 MCV 87.4 MCH 27.9 MCHC 32.0 RDW 13.7 Plt Count 327 MPV 11.0 Absolute Nucleated RBC 0.000 Nucleated RBC % (auto) 0.0 POC Glucose 173 H B-Natriuretic Peptide Microbiology Microbiology Results: Microbiology 02/25/21 22:39 Blood - Venous Blood Culture - Preliminary No growth after 24 hours. 02/25/21 22:39 Blood - Venous Blood Culture - Preliminary No growth after 24 hours. Quality Stroke Does the patient have a stroke diagnosis?: No VTE Prior VTE?: No VTE Risk Level:: Medical - low VTE Device Contraindication: N/A - Device Ordered VTE Drug Contraindication: Treatment Not Indicated
[2021-02-27] MEDS: Ipratropium Bromide 0.5 MG/2.5 ML SOLUTION INHALE ×3 (08:24→19:37)
[2021-02-27] MEDS: Fluticasone/Vilanterol 200/25 BLST.W.DEV 1 PUFF INHALE (08:30)
--- NOTE | 2021-02-27 10:55 | MHC.CM.PN ---
CM MET WITH PT AND DAUGHTER, JIM, WHO WAS AT BEDSIDE. PT REPORTS SHE LIVES WITH ANOTHER DAUGHTER WHO DOES NOT PROVIDE ANY ASSISTANCE TO HER. 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 PT DOES NOT HAVE DME OR ANY TYPE OF SERVICES. PT IS CONCERNED ABOUT BEING ABLE TO GO UP AND DOWN STAIRS AT HOME SHE HAS TO MULTIPLE TIMES A DAY. DAUGHTER JIM DID STATE THE PT COULD STAY WITH HER IF NEEDED AT DC. STR OR HOME PT WERE ALSO DISCUSSED IN THE EVENT PT IS HERE FOR AN EXTENDED AMOUNT OF TIME AND BECOMES DECONDITIONED. IMM DELIVERED ON 02/27 CURRENT DC PLAN IS HOME FAMILY TO TRANSPORT
[2021-02-27] MEDS: Enoxaparin Sodium 30 MG/0.3 ML SYRINGE SUBCUT (11:03)
[2021-02-27 11:51] LABS: Glucose, Whole Blood 335 mg/dL (60-115)
[2021-02-27 16:22] LABS: Glucose, Whole Blood 174 mg/dL (60-115)
[2021-02-27] MEDS: guaiFENesin LA 600 MG TAB.ER.12H PO (20:34)
[2021-02-27 20:41] LABS: Glucose, Whole Blood 318 mg/dL (60-115)
[2021-02-28] VITALS (11 sets, daily range): BP systolic 114–148; BP diastolic 60–81; PULSE 90–124; RESP 18; TEMP 36–37; O2SAT 87–97
[2021-02-28] MEDS: 0.9 % Sodium Chloride Flush 3 ML SYRINGE IVFLUSH ×4 (01:12→21:13)
[2021-02-28] MEDS: Doxycycline Hyclate 100 MG in 0.9 % Sodium Chloride 250 ML 166.67 MG IV ×2 (03:27→15:48)
[2021-02-28 07:27] LABS: Hematocrit 31.9 % (37-47); Mean Corpuscular HGB Conc 31.3 g/dl (31.0-35.0); Mean Corpuscular Hemoglobin 27.5 pg (27.0-33.0); Mean Corpuscular Volume 87.6 fL (80-98); Mean Platelet Volume 10.8 fL (9.4-12.3); Platelet Count 289 X10*3/uL (160-400); Red Blood Count 3.64 X10*6/uL (4.20-5.50); Red Cell Distribution Width 13.8 % (11.0-16.0); White Blood Count 18.2 X10*3/uL (4.8-10.8)
[2021-02-28 07:41] LABS: Glucose, Whole Blood 187 mg/dL (60-115)
[2021-02-28 07:45] LABS: Anion Gap 10 (12-20); Blood Urea Nitrogen 45 mg/dL (9-16); Calcium 9.1 mg/dL (8.4-10.2); Carbon Dioxide 30 mmol/L (22-29); Chloride 104 mmol/L (96-108); Creatinine Clr Calc Pharmacy 37.3; Estimated Glomerular Filt Rate 59; Glucose Random 187 mg/dL (60-115); Potassium 3.3 mmol/L (3.3-5.1); Sodium 141 mmol/L (135-145)
[2021-02-28] MEDS: Insulin Lispro 100 UNIT/ML 3 ML VIAL SUBCUT ×4 (07:57→21:12)
[2021-02-28] MEDS: Losartan Potassium 25 MG TABLET PO ×2 (07:58→21:13)
[2021-02-28] MEDS: guaiFENesin LA 600 MG TAB.ER.12H PO ×2 (07:58→21:13)
[2021-02-28] MEDS: methylPREDNISolone Sod Succ 40 MG/ML VIAL IVPUSH ×2 (07:59→21:13)
[2021-02-28] MEDS: hydroCHLOROthiazide 50 MG TABLET PO (07:59)
[2021-02-28] MEDS: Ipratropium Bromide 0.5 MG/2.5 ML SOLUTION INHALE ×4 (08:12→20:24)
[2021-02-28] MEDS: Fluticasone/Vilanterol 200/25 BLST.W.DEV 1 PUFF INHALE (08:12)
[2021-02-28] MEDS: Enoxaparin Sodium 30 MG/0.3 ML SYRINGE SUBCUT (10:51)
--- NOTE | 2021-02-28 11:54 | PM.IMPN ---
Progress Note: A&P (1) Leukocytosis: Status: Acute Assessment and Plan: This is an 80 yo F with a PMH of COPD/Asthma who presents to the hospital with progressive shortness of breath over the last 6-7 days. She reports that she had some prednisone at home which took as previously told by her PCP (30mg x 3 days and taper by 10) but she did not improve so she presented to the hospital. Acute Asthma/COPD exacerbation Somwhat better today, but still with some shortness of breath continue empiric doxycycline continue systemic steriods change DuoNebs to Xopenex / Atrovent due to tachycardia her Leukocytosis likely related to prednisone use at home and tachycardia due to bronchodilators and NOT severe sepsis Mucinex for dry cough DM hold oral meds sliding scale HTN continue home meds DISPO Likely home tomorrow when medically cleared Full Code DVT pptx, start Lovenox Due to the severity of her presentation and on going symptoms, I anticipate at least an additional 48 hours more in the hospital. Subjective Subjective Date of Service: 03/01/21 Interval History: Follow up asthma still with some wheezing feels weak Physical Exam Vital Signs: Vital Signs: Last Vital Signs Temp 96.8 F 02/28/21 07:23 Pulse 108 H 02/28/21 11:13 Resp 18 02/28/21 07:23 BP 134/73 02/28/21 07:23 Pulse Ox 87 L 02/28/21 10:28 Body Mass Index 26.4 Appearing in no acute distress lung sounds exp wheezes heart regular rate rhythm, clear S1, S2 positive bowel sounds, abdomen is soft, nontender neuro patient is alert x3, no focal deficits Objective Data Current Medications Generic Name Dose Route Start Last Admin Trade Name Freq PRN Reason Stop Dose Admin Acetaminophen 650 mg 02/26/21 02:00 Acetaminophen 325 Mg Tablet PO Q6H PRN Pain, Mild (Pain Scale 1-3) Dextrose 25 gm 02/26/21 02:21 Dextrose 50 % 25 Gm/50 Ml Vial IVPUSH Q15M PRN per Hypoglycemia Standing Ord. Protocol Enoxaparin Sodium 30 mg 02/27/21 10:00 02/28/21 10:51 Enoxaparin Sodium 30 Mg/0.3 Ml Syringe SUBCUT 30 mg Q24H [facility] Administration Fluticasone/Vilanterol 1 puff 02/27/21 08:00 02/28/21 08:12 Fluticasone/Vilanterol 200/25 Blst.W.Dev INHALE 1 puff RDAILY [facility] Administration Glucose 15 gm 02/26/21 02:21 Glucose Gel 15 Gm Gel..Gram. PO Q15M PRN per Hypoglycemia Standing Ord. Protocol Guaifenesin 600 mg 02/27/21 21:00 02/28/21 07:58 Guaifenesin [place] 600 Mg Tab.Er.12h PO 600 mg BID [facility] Administration Guaifenesin/Codeine Phosphate 5 ml 02/27/21 06:49 02/27/21 14:07 Guaifen/Codeine Sf 200/20/10ml 10 Ml Liquid PO 5 ml Q6H PRN Administration Cough Hydrochlorothiazide 50 mg 02/26/21 09:00 02/28/21 07:59 Hydrochlorothiazide 50 Mg Tablet PO 50 mg DAILY [facility] Administration Protocol Doxycycline Hyclate 100 mg/ 250 mls @ 166.67 mls/hr 02/26/21 03:00 02/28/21 05:02 Sodium Chloride IV Infused Q12H [facility] Infusion Insulin Human Lispro 0 unit 02/26/21 07:30 02/28/21 11:41 Insulin Lispro 100 Unit/Ml 3 Ml Vial SUBCUT 4 unit QIDACHS [facility] Administration Protocol Ipratropium [place] 0.5 mg 02/26/21 08:00 02/28/21 11:09 Ipratropium [place] 0.5 Mg/2.5 Ml Solution INHALE 0.5 mg RQ4H WHILE AWAKE [facility] Administration Levalbuterol HCl 1.25 mg 02/26/21 08:00 02/28/21 11:09 Levalbuterol Hcl 1.25 Mg/0.5 Ml Vial.Neb INHALE 1.25 mg RQ4H WHILE AWAKE [facility] Administration Levalbuterol HCl 1.25 mg 02/26/21 07:59 Levalbuterol Hcl 1.25 Mg/0.5 Ml Vial.Neb INHALE Q3H PRN Shortness of Breath Losartan Potassium 25 mg 02/26/21 09:00 02/28/21 07:58 Losartan Potassium 25 Mg Tablet PO 25 mg BID [facility] Administration Protocol Methylprednisolone Sodium Succinate 40 mg 02/26/21 09:00 02/28/21 07:59 Methylprednisolone Sod Succ 40 Mg/Ml Vial IVPUSH 40 mg BID [facility] Administration Sodium Chloride 3 ml 02/26/21 08:00 02/28/21 07:59 0.9 % Sodium Chloride Flush 3 Ml Syringe IVFLUSH 3 ml QSHIFT [facility] Administration Labs CBC & Chem 7: 02/28/21 06:46 02/28/21 06:46 Labs: Laboratory Results - last 24 hr 02/27/21 02/27/21 02/28/21 16:13 20:33 06:46 MCV 87.6 MCH 27.5 MCHC 31.3 RDW 13.8 Plt Count 289 MPV 10.8 Absolute Nucleated RBC 0.000 Nucleated RBC % (auto) 0.0 Anion Gap Estim Creat Clear Calc Estimated GFR POC Glucose 174 H 318 H Random Glucose Calcium 02/28/21 02/28/21 06:46 07:21 MCV MCH MCHC RDW Plt Count MPV Absolute Nucleated RBC Nucleated RBC % (auto) Anion Gap 10 L Estim Creat Clear Calc 37.3 Estimated GFR 59 POC Glucose 187 H Random Glucose 187 H D Calcium 9.1 Microbiology Microbiology Results: Microbiology 02/25/21 22:39 Blood - Venous Blood Culture - Preliminary No growth after 48 hours. 02/25/21 22:39 Blood - Venous Blood Culture - Preliminary No growth after 48 hours. Quality Stroke Does the patient have a stroke diagnosis?: No VTE Prior VTE?: No VTE Risk Level:: Medical - low VTE Device Contraindication: N/A - Device Ordered VTE Drug Contraindication: Treatment Not Indicated
[2021-02-28 13:19] LABS: Glucose, Whole Blood 242 mg/dL (60-115)
--- NOTE | 2021-02-28 14:37 | MHC.CLN ---
NUTRITION PATIENT REQUESTED SUPPLEMENT. ADDED GLUCERNA 240 ML BID (474 KCAL, 19,8 G PROTEIN). DIET CHANGED TO DIABETIC 1800 KCAL, CARDIAC DUE TO DX DM.
[2021-02-28 16:51] LABS: Glucose, Whole Blood 261 mg/dL (60-115)
[2021-02-28 20:38] LABS: Glucose, Whole Blood 202 mg/dL (60-115)
[2021-03-01] VITALS (11 sets, daily range): BP systolic 110–164; BP diastolic 55–83; PULSE 98–113; RESP 18–21; TEMP 36.2–36.5; O2SAT 95–99
[2021-03-01] MEDS: Doxycycline Hyclate 100 MG in 0.9 % Sodium Chloride 250 ML 166.67 MG IV (02:51)
--- NOTE | 2021-03-01 04:39 | PC.NURSE ---
PATIENT WAS AWAKENED APPROX., 0320 FOR VITAL AND ROUNDS, IVABX INFUSING ORDERED, PT OFFERED NO COMPLAINTS. [facility] [place] [facility] [employer] CALLED FLOOR AT 0335 TO REPORT SEEING HR INCREASE TO 170 FOR LESS THAN A MINUTE AND THEN RESUMED TO LOW 100 S. PATIENT AGIAN OFFERED NO COMPLAINTS OR DISCOMFORTS. NO ANXIETY OR DREAMS, ETC...CARDIAC MONITORING TO REMIAN IN USE AND WILL MONITOR PATIENT.
[2021-03-01 07:40] LABS: Glucose, Whole Blood 229 mg/dL (60-115)
[2021-03-01] MEDS: Losartan Potassium 25 MG TABLET PO ×2 (08:11→20:11)
[2021-03-01] MEDS: hydroCHLOROthiazide 50 MG TABLET PO (08:11)
[2021-03-01] MEDS: guaiFENesin LA 600 MG TAB.ER.12H PO (08:11)
[2021-03-01] MEDS: Insulin Lispro 100 UNIT/ML 3 ML VIAL SUBCUT ×4 (08:12→20:19)
[2021-03-01] MEDS: Enoxaparin Sodium 30 MG/0.3 ML SYRINGE SUBCUT (08:12)
[2021-03-01] MEDS: methylPREDNISolone Sod Succ 40 MG/ML VIAL IVPUSH (08:12)
[2021-03-01] MEDS: 0.9 % Sodium Chloride Flush 3 ML SYRINGE IVFLUSH (08:13)
[2021-03-01] MEDS: Ipratropium Bromide 0.5 MG/2.5 ML SOLUTION INHALE ×4 (08:13→19:57)
[2021-03-01] MEDS: Fluticasone/Vilanterol 200/25 BLST.W.DEV 1 PUFF INHALE (08:14)
--- NOTE | 2021-03-01 10:24 | P.PNIM_ITS ---
Progress Note: A&P (1) Leukocytosis: Status: Acute Assessment and Plan: This is an 80 yo F with a PMH of COPD/Asthma who presents to the hospital with progressive shortness of breath over the last 6-7 days. She reports that she had some prednisone at home which took as previously told by her PCP (30mg x 3 days and taper by 10) but she did not improve so she presented to the hospital. Acute Asthma/COPD exacerbation Still with wheezing continue empiric doxycycline continue systemic steriods change DuoNebs to Xopenex / Atrovent due to tachycardia Mucinex for dry cough get repeat CXR ? aspiration choking when she is eating speech consult Leukocytosis likely related to prednisone use at home and tachycardia due to bronchodilators and NOT severe sepsis DM hold oral meds sliding scale HTN continue home meds DISPO Likely home tomorrow when medically cleared Full Code DVT pptx, start Lovenox Due to the severity of her presentation and on going symptoms, I anticipate at least an additional 48 hours more in the hospital. Subjective Subjective Date of Service: 03/01/21 Interval History: Follow up asthma exacerbation Choking while eating still with wheezing Physical Exam Vital Signs: Vital Signs: Last Vital Signs Temp 97.5 F 03/01/21 07:07 Pulse 113 H 03/01/21 08:17 Resp 21 H 03/01/21 07:07 BP 125/59 L 03/01/21 07:07 Pulse Ox 95 03/01/21 07:07 Body Mass Index 26.4 Appearing in no acute distress lung sounds exp wheezing heart regular rate rhythm, clear S1, S2 positive bowel sounds, abdomen is soft, nontender neuro patient is alert x3, no focal deficits Objective Data Current Medications Generic Name Dose Route Start Last Admin Trade Name Freq PRN Reason Stop Dose Admin Acetaminophen 650 mg 02/26/21 02:00 Acetaminophen 325 Mg Tablet PO Q6H PRN Pain, Mild (Pain Scale 1-3) Dextrose 25 gm 02/26/21 02:21 Dextrose 50 % 25 Gm/50 Ml Vial IVPUSH Q15M PRN per Hypoglycemia Standing Ord. Protocol Enoxaparin Sodium 30 mg 02/27/21 10:00 03/01/21 08:12 Enoxaparin Sodium 30 Mg/0.3 Ml Syringe SUBCUT 30 mg Q24H [facility] Administration Fluticasone/Vilanterol 1 puff 02/27/21 08:00 03/01/21 08:14 Fluticasone/Vilanterol 200/25 Blst.W.Dev INHALE 1 puff RDAILY [facility] Administration Glucose 15 gm 02/26/21 02:21 Glucose Gel 15 Gm Gel..Gram. PO Q15M PRN per Hypoglycemia Standing Ord. Protocol Guaifenesin 600 mg 02/27/21 21:00 03/01/21 08:11 Guaifenesin [place] 600 Mg Tab.Er.12h PO 600 mg BID [facility] Administration Guaifenesin/Codeine Phosphate 5 ml 02/27/21 06:49 02/27/21 14:07 Guaifen/Codeine Sf 200/20/10ml 10 Ml Liquid PO 5 ml Q6H PRN Administration Cough Hydrochlorothiazide 50 mg 02/26/21 09:00 03/01/21 08:11 Hydrochlorothiazide 50 Mg Tablet PO 50 mg DAILY [facility] Administration Protocol Doxycycline Hyclate 100 mg/ 250 mls @ 166.67 mls/hr 02/26/21 03:00 03/01/21 04:37 Sodium Chloride IV Infused Q12H [facility] Infusion Insulin Human Lispro 0 unit 02/26/21 07:30 03/01/21 08:12 Insulin Lispro 100 Unit/Ml 3 Ml Vial SUBCUT 4 unit QIDACHS [facility] Administration Protocol Ipratropium [place] 0.5 mg 02/26/21 08:00 03/01/21 08:13 Ipratropium [place] 0.5 Mg/2.5 Ml Solution INHALE 0.5 mg RQ4H WHILE AWAKE [facility] Administration Levalbuterol HCl 1.25 mg 02/26/21 08:00 03/01/21 08:13 Levalbuterol Hcl 1.25 Mg/0.5 Ml Vial.Neb INHALE 1.25 mg RQ4H WHILE AWAKE [facility] Administration Levalbuterol HCl 1.25 mg 02/26/21 07:59 Levalbuterol Hcl 1.25 Mg/0.5 Ml Vial.Neb INHALE Q3H PRN Shortness of Breath Losartan Potassium 25 mg 02/26/21 09:00 03/01/21 08:11 Losartan Potassium 25 Mg Tablet PO 25 mg BID [facility] Administration Protocol Methylprednisolone Sodium Succinate 40 mg 02/26/21 09:00 03/01/21 08:12 Methylprednisolone Sod Succ 40 Mg/Ml Vial IVPUSH 40 mg BID [facility] Administration Sodium Chloride 3 ml 02/26/21 08:00 03/01/21 08:13 0.9 % Sodium Chloride Flush 3 Ml Syringe IVFLUSH 3 ml QSHIFT [facility] Administration Labs CBC & Chem 7: 02/28/21 06:46 02/28/21 06:46 Labs: Laboratory Results - last 24 hr 02/28/21 02/28/21 02/28/21 11:36 16:25 20:33 POC Glucose 242 H 261 H 202 H 03/01/21 07:09 POC Glucose 229 H Microbiology Microbiology Results: Microbiology 02/25/21 22:39 Blood - Venous Blood Culture - Preliminary No growth after 48 hours. 02/25/21 22:39 Blood - Venous Blood Culture - Preliminary No growth after 48 hours. Quality Stroke Does the patient have a stroke diagnosis?: No VTE Prior VTE?: No VTE Risk Level:: Medical - low VTE Device Contraindication: N/A - Device Ordered VTE Drug Contraindication: Treatment Not Indicated
[2021-03-01 11:16] LABS: Glucose, Whole Blood 181 mg/dL (60-115)
[2021-03-01 11:35] LABS: B Type Natriuretic Peptide 167 pg/mL (<100)
--- NOTE | 2021-03-01 11:53 | MHC.CM.PN ---
CM MET WITH PT TO DISCUSS DC PLANNING. PT IS AGREEABLE TO STR RECOMMENDED BY PT SHAWNAAL. PT IS VACCINATED AGAINST COVID 19 AND PROVIDED HER CARD. CM MADE A COPY WHICH WAS SCANNED INTO [employer] AND PLACED ON PTS CHART. AFTER DISCUSSION WITH PT, REFERRALS WERE MADE TO [facility] AND [facility] BASED ON HER PREFERENCES. PT IS EXPECTED TO BE READY TO DC TOMORROW
--- NOTE | 2021-03-01 12:23 | MHC.SL.SWA ---
Speech Pathologist Impression: Oralpharyngeal Dysphagia Risk of Aspiration Due to: Poor PO Intake Liquid Consistency and Strategies for Safe Swallow: Liquid Intake Recommendation: Thin Liquid Intake Strategies: Unrestricted Solid Food Consistency: Dietary Recommendations: Grnd/Mech Altered (NDD2) Additional Modifications to Solid Foods: Moistened foods recommended at this time due to reported dry mouth and pharynx. Oral Medication Intake: Whole with Liquid Compensatory Strategies and Precautions to be Taken for Safe Swallow: Sitting Upright (90 deg) Small Bites and Sips Alternate Liquids/Solids Supervision While Eating and Drinking for Safe Swallow: Intermittent Supervision Foods to Avoid: Avoid dry foods at this time due to reported dry mouth and pharynx. Recommendation for Speech: Inpatient Speech Therapy TREASURY DIRECTOR will follow up tomorrow morning. Solar Energy Advisor Clinican/Clinical Fellow: No Supervisory Statement: I have reviewed and agree with the student/clinical fellow's documentation: N/A Speech Language Pathologist: Yue Gutierrez M.A., CCC-TREASURY DIRECTOR
--- NOTE | 2021-03-01 14:59 | PM.DS ---
DS: Providers Provider Date of admission: 02/26/21 02:00 <Cheryle Vargas NP - Last Filed: 03/01/21 15:09> Primary care physician: Josiah Cunningham MD <Cheryle Vargas NP - Last Filed: 03/01/21 15:09> DS: Diagnosis Discharge Diagnosis (1) Leukocytosis: Status: Acute <Cheryle Vargas NP - Last Filed: 03/01/21 15:09> DS: Medications Discharge Medications Home Medications: Home Medications Medication Instructions Recorded Confirmed albuterol sulfate 90 mcg/actuation 2 puff PO Q6H PRN 02/25/21 02/25/21 aerosol inhaler budesonide-formoterol HFA 160 2 puff INHALATION BID 02/25/21 02/25/21 mcg-4.5 mcg/actuation aerosol inhaler (Symbicort) glipizide 2.5 mg tablet, extended 1 tab PO DAILY 02/25/21 02/25/21 release 24 hr hydrochlorothiazide 50 mg tablet 1 tab PO DAILY 02/25/21 02/25/21 losartan 25 mg tablet 1 tab PO BID 02/25/21 02/25/21 <Cheryle Vargas NP - Last Filed: 03/01/21 15:09> DS: Summary Time Spent with Patient Time attestation: Total time spent providing and/or coordinating discharge services: <Cheryle Vargas NP - Last Filed: 03/01/21 15:09> Discharge coordination time: Greater than 30 minutes <MARILYN Lu - Last Filed: 03/02/21 10:57> Quality: Stroke Does the patient have a stroke diagnosis?: No <MARILYN Lu - Last Filed: 03/02/21 10:57> Physical Exam Vital Signs: Vital Signs: Last Vital Signs Temp 97.1 F 03/01/21 11:31 Pulse 98 03/01/21 11:58 Resp 18 03/01/21 11:31 BP 147/74 H 03/01/21 11:31 Pulse Ox 99 03/01/21 11:31 Body Mass Index 26.4 <Cheryle Vargas NP - Last Filed: 03/01/21 15:09> DS: Data Data Completed and Pending Labs on day of discharge: Laboratory Results - last 24 hr 02/28/21 02/28/21 03/01/21 16:25 20:33 07:09 POC Glucose 261 H 202 H 229 H B-Natriuretic Peptide 03/01/21 03/01/21 10:18 11:12 POC Glucose 181 H B-Natriuretic Peptide 167 H Preliminary micro results at discharge 02/25/21 22:39 Blood Culture - Preliminary Blood - Venous No growth after 48 hours. 02/25/21 22:39 Blood Culture - Preliminary Blood - Venous No growth after 48 hours. <Cheryle Vargas NP - Last Filed: 03/01/21 15:09> Discharge Plan Discharge Patient Disposition: Xfer Inpatient Rehab Fac <Cheryle Vargas NP - Last Filed: 03/01/21 15:09> Discharge Diagnosis: Asthma/COPD exacerbation <Cheryle Vargas NP - Last Filed: 03/01/21 15:09> Asthma/COPD exacerbation <MARILYN Lu - Last Filed: 03/02/21 10:57> Referrals: [facility] [Other] - 1 Week Josiah Cunningham MD [Primary Care Provider] - 1 Week Marce Cherry MD [Physician] - None (as needed) <Cheryle Vargas NP - Last Filed: 03/01/21 15:09> Discharge Medications: New ipratropium bromide 0.02 % Solution 0.5 mg inhalation RQ4H WHILE AWAKE 1 Days Qty: 10 RF: 0 levalbuterol HCl [Xopenex Concentrate] 1.25 mg/0.5 mL Solution For Nebulization 1.25 mg inhalation RQ4H WHILE AWAKE 1 Days Qty: 2 RF: 0 levalbuterol HCl [Xopenex Concentrate] 1.25 mg/0.5 mL Solution For Nebulization 1.25 mg inhalation Q3H PRN (Reason: Shortness Of Breath) 1 Days RF: 0 prednisone 10 mg tablet See Taper mg PO DAILY Qty: 10 RF: 0 Continued hydrochlorothiazide 50 mg tablet 1 tab PO DAILY RF: 0 glipizide 2.5 mg tablet extended release 24hr 1 tab PO DAILY RF: 0 losartan 25 mg tablet 1 tab PO BID RF: 0 albuterol sulfate 90 mcg/actuation HFA aerosol inhaler 2 puff PO Q6H PRN (Reason: wheezing) RF: 0 budesonide-formoterol [Symbicort] 160-4.5 mcg/actuation HFA aerosol inhaler 2 puff inhalation BID RF: 0 <Cheryle Vargas NP - Last Filed: 03/01/21 15:09> Diet: advance to usual diet <Cheryle Vargas NP - Last Filed: 03/01/21 15:09> advance to usual diet <MARILYN Lu - Last Filed: 03/02/21 10:57> Activity on Discharge: As tolerated <Cheryle Vargas NP - Last Filed: 03/01/21 15:09> As tolerated <MARILYN Lu - Last Filed: 03/02/21 10:57> Stand Alone Forms: Patient Portal Discharge page <Cheryle Vargas NP - Last Filed: 03/01/21 15:09> Care Plan Goals: Resolution of respiratory difficulties <Cheryle Vargas NP - Last Filed: 03/01/21 15:09> Health Concerns: Asthma/copd exacerbation <Cheryle Vargas NP - Last Filed: 03/01/21 15:09> Plan of Treatment: Follow up with primary care provider as needed Follow up with education program coordinator Take prednisone as prescribed: Prednisone 40mg dailyx3,[id number] <Cheryle Vargas NP - Last Filed: 03/01/21 15:09> Assessment: See discharge summary <Cheryle Vargas NP - Last Filed: 03/01/21 15:09>
[2021-03-01 16:24] LABS: Glucose, Whole Blood 200 mg/dL (60-115)
[2021-03-01] MEDS: guaiFEN/Codeine SF 200/20/10ML 10 ML LIQUID 5 ML PO (20:16)
[2021-03-01 20:24] LABS: Glucose, Whole Blood 231 mg/dL (60-115)
--- NOTE | 2021-03-02 00:59 | PC.NURSE ---
[facility] [place] REPORTED TO SEE ON THE LOADER SEMICONDUCTOR DIES OF THIS PATIENT ; ST WITH A BURST OF PAT AT 158, [place] PVC'S. SIMILAR EPISODE WAS NOTED 24 HOURS AGO. PATIENT DENIES PAIN OR DISCOMFORTS, SHE IS EASILY STARTLED WHEN AWAKENED. VITALS 97.5, 102,18, 110/55. HOSPITALIST ON DUTY WAS UPDATED VIA [employer] AND NO NEW ORDERS AT THIS TIME. CARDIAC MONITORING CONTINUES AND WILL MONITOR PATIENT.
[2021-03-02 03:29] VITALS: BP 121/60; PULSE 100; RESP 18; TEMP 36.2; O2SAT 97
[2021-03-02 07:12] VITALS: BP 147/75; PULSE 111; RESP 18; TEMP 36.5; O2SAT 95
[2021-03-02 07:45] VITALS: PULSE 109; O2SAT 96
[2021-03-02] MEDS: Fluticasone/Vilanterol 200/25 BLST.W.DEV 1 PUFF INHALE (07:45)
[2021-03-02] MEDS: Ipratropium Bromide 0.5 MG/2.5 ML SOLUTION INHALE ×2 (07:45→12:26)
[2021-03-02 07:52] LABS: Glucose, Whole Blood 82 mg/dL (60-115)
[2021-03-02] MEDS: hydroCHLOROthiazide 50 MG TABLET PO (08:01)
[2021-03-02] MEDS: predniSONE 20 MG TABLET 40 MG PO (08:01)
[2021-03-02] MEDS: Losartan Potassium 25 MG TABLET PO (08:01)
[2021-03-02] MEDS: polyethylene glycoL 3350 17 GM POWD.PACK PO (09:26)
[2021-03-02] MEDS: Enoxaparin Sodium 30 MG/0.3 ML SYRINGE SUBCUT (09:29)
--- NOTE | 2021-03-02 11:00 | PM.DS ---
DS: Providers Provider Date of Service: 03/02/21 Date of admission: 02/26/21 02:00 Primary care physician: Josiah Cunningham MD DS: Diagnosis Discharge Diagnosis (1) Leukocytosis: Status: Acute (2) COPD exacerbation: Status: Acute (3) Asthma exacerbation: Status: Acute (4) Tachycardia: Status: Acute DS: Medications Discharge Medications Home Medications: Home Medications Medication Instructions Recorded Confirmed albuterol sulfate 90 mcg/actuation 2 puff PO Q6H PRN 02/25/21 02/25/21 aerosol inhaler budesonide-formoterol HFA 160 2 puff INHALATION BID 02/25/21 02/25/21 mcg-4.5 mcg/actuation aerosol inhaler (Symbicort) glipizide 2.5 mg tablet, extended 1 tab PO DAILY 02/25/21 02/25/21 release 24 hr hydrochlorothiazide 50 mg tablet 1 tab PO DAILY 02/25/21 02/25/21 losartan 25 mg tablet 1 tab PO BID 02/25/21 02/25/21 DS: Summary Status at Discharge Cognitive/behavioral status at discharge: From H&P on day of admission 80-year-old female with history of asthma, hypertension, diabetes mellitus, hyperlipidemia, who presented with worsening shortness of breath.? History is from the patient and from ED notes. Patient endorses that for the past 2 weeks, she has been having worsening shortness of breath and wheezing.? She also has cough productive of green sputum, left-sided chest pain associated with cough, and has had some episodes of diarrhea.? She has some steroids at home that she can take when these flares happen, therefore she started taking steroids about 6 days ago, but came to the ED because of ongoing symptoms.? She denies fever, chills, nausea or vomiting, abdominal pain. In the ED, vitals were significant for tachypnea with a respiratory rate of 28, tachycardic in the 120s, satting 90% on room air.? Pertinent labs include:? WBC of 25.6, glucose 407, COVID negative.? Chest x-ray revealed no dense consolidation. The patient was treated with steroids for asthma exacerbation. Hospital course The patient was admitted to the hospital for 2 weeks of worsening shortness of breath and wheezing. For asthma/COPD exacerbation with IV steroids, DuoNeb breathing treatments as well as doxycycline for possible bronchitis. Due to significant tachycardia her breathing treatments were changed to Xopenex and Atrovent. Her tachycardia is improving. Her wheezing and shortness of breath have gradually improved. She is currently requiring 2 L of oxygen via nasal cannula which can be weaned as tolerated. May need home oxygen evaluation. She will be discharged with prednisone taper as well as breathing treatments. She should schedule a follow-up appointment with pulmonology. Dysphagia. Patient was noted to have choking episodes with eating and was evaluated by speech pathologist who recommended mechanical ground diet Time Spent with Patient Time attestation: Total time spent providing and/or coordinating discharge services: Discharge coordination time: Greater than 30 minutes Quality: Stroke Does the patient have a stroke diagnosis?: No Physical Exam Vital Signs: Vital Signs: Last Vital Signs Temp 97.7 F 03/02/21 07:12 Pulse 109 H 03/02/21 07:45 Resp 18 03/02/21 07:12 BP 147/75 H 03/02/21 07:12 Pulse Ox 95 03/02/21 07:12 Body Mass Index 26.4 DS: Data Data Completed and Pending Labs on day of discharge: Laboratory Results - last 24 hr 03/01/21 03/01/21 03/01/21 10:18 11:12 16:09 POC Glucose 181 H 200 H B-Natriuretic Peptide 167 H 03/01/21 03/02/21 20:17 07:12 POC Glucose 231 H 82 B-Natriuretic Peptide Preliminary micro results at discharge 02/25/21 22:39 Blood Culture - Preliminary Blood - Venous No growth after 48 hours. 02/25/21 22:39 Blood Culture - Preliminary Blood - Venous No growth after 48 hours. Discharge Plan Discharge Patient Disposition: Xfer Inpatient Rehab Fac Discharge Diagnosis: Asthma/COPD exacerbation Referrals: [facility] [Other] - 1 Week Josiah Cunningham MD [Primary Care Provider] - 1 Week Marce Cherry MD [Physician] - 1 Week Discharge Medications: New ipratropium bromide 0.02 % Solution 0.5 mg inhalation RQ4H WHILE AWAKE 1 Days Qty: 10 RF: 0 levalbuterol HCl [Xopenex Concentrate] 1.25 mg/0.5 mL Solution For Nebulization 1.25 mg inhalation RQ4H WHILE AWAKE 1 Days Qty: 2 RF: 0 levalbuterol HCl [Xopenex Concentrate] 1.25 mg/0.5 mL Solution For Nebulization 1.25 mg inhalation Q3H PRN (Reason: Shortness Of Breath) 1 Days RF: 0 prednisone 10 mg tablet See Taper mg PO DAILY Qty: 10 RF: 0 Continued hydrochlorothiazide 50 mg tablet 1 tab PO DAILY RF: 0 glipizide 2.5 mg tablet extended release 24hr 1 tab PO DAILY RF: 0 losartan 25 mg tablet 1 tab PO BID RF: 0 albuterol sulfate 90 mcg/actuation HFA aerosol inhaler 2 puff PO Q6H PRN (Reason: wheezing) RF: 0 budesonide-formoterol [Symbicort] 160-4.5 mcg/actuation HFA aerosol inhaler 2 puff inhalation BID RF: 0 Discharge Orders: Discharge Order (Routine); Ordered 03/02/21 Ordered By: Desiree Gambino Diet: advance to usual diet Activity on Discharge: As tolerated Stand Alone Forms: Patient Portal Discharge page Care Plan Goals: Resolution of respiratory difficulties Health Concerns: Asthma/copd exacerbation Plan of Treatment: Follow up with primary care provider as needed Follow up with institutional cook Take prednisone as prescribed: Prednisone 40mg dailyx3,[id number] Dysphagia - recommend mechanical ground diet Assessment: See discharge summary
[2021-03-02 11:17] VITALS: BP 127/66; PULSE 109; RESP 18; TEMP 36.3; O2SAT 95
--- NOTE | 2021-03-02 11:27 | MHC.SL.SWA ---
Speech Pathologist Impression: Oralpharyngeal Dysphagia Risk of Aspiration Due to: Poor PO Intake Liquid Consistency and Strategies for Safe Swallow: Liquid Intake Recommendation: Thin Liquid Intake Strategies: Unrestricted Solid Food Consistency: Dietary Recommendations: Grnd/Mech Altered (NDD2) Additional Modifications to Solid Foods: Moist foods recommended at this time due to reported dry mouth and pharynx. Patient is able to adequately masticate and swallow chopping/advanced (NDD3 solids) but prefers ground/mechanically altered solids at this time for ease of AP transport. Oral Medication Intake: Whole with Liquid Compensatory Strategies and Precautions to be Taken for Safe Swallow: Sitting Upright (90 deg) Small Bites and Sips Alternate Liquids/Solids Supervision While Eating and Drinking for Safe Swallow: Intermittent Supervision Foods to Avoid: Avoid dry foods at this time due to reported dry mouth and pharynx. Recommendation for Speech: Comment: She reported continued dry mouth today, minimal appetite and overall preference for moistened foods and broths during her stay. Nursing was present for some of the PO trials and recommended patient trial oral moisturizer. HEEL DIPPER will continue to follow. Gusset Maker Clinican/Clinical Fellow: No Supervisory Statement: I have reviewed and agree with the student/clinical fellow's documentation: N/A Speech Language Pathologist: Yue Gutierrez M.A., CCC-HEEL DIPPER
[2021-03-02 11:33] LABS: Glucose, Whole Blood 148 mg/dL (60-115)
--- NOTE | 2021-03-02 11:57 | MHC.CM.PN ---
Addendum entered by Mercedes Baugh 03/02/21 12:13: UPDATED IMM DELIVERED Original Note: PT CLEARED TO DC TODAY TO [facility] AT 1400 HOURS. PT NOTIFIED AND DAUGHTER, JIM ([phone]) NOTIFIED VIA T/C.
[2021-03-02 12:16] LABS: COVID-19 Test Negative (Negative)
[2021-03-02 12:26] VITALS: PULSE 89; O2SAT 95
== END 2021-03-02 14:45 | DRG 202 ==
LOC: HO.ED 02-26 00:58 → HO.EDOVER 02-26 07:17 → HO.S3 02-26 21:23
PROVIDERS: Internal Medicine; Nurse Practitioner Acute Care; Physician Assistant Medical; Admitting Provider Internal Medicine; Emergency Provider Emergency Medicine; PCP Internal Medicine; Visit Provider Family Medicine
DX: J45.901 Unspecified asthma with (acute) exacerbation (principal); J44.1 Chronic obstructive pulmonary disease with (acute) exacerbation; E78.00 Pure hypercholesterolemia, unspecified; E11.9 Type 2 diabetes mellitus without complications; R00.0 Tachycardia, unspecified; D72.829 Elevated white blood cell count, unspecified; I10 Essential (primary) hypertension; Z20.822 Contact with and (suspected) exposure to COVID-19; Z79.52 Long term (current) use of systemic steroids; Z79.899 Other long term (current) drug therapy
CPT/HCPCS: 36415; 71045; 71046; 80048; 80053; 82947; 83880; 85025; 85027; 87040; 87635; 92610; 93005; 94640; 94644; 97162; 99220; 99285; J0696; J1650; J2920; J2930

== ENCOUNTER → 2021-03-15 14:12 | Outpatient (BNVA) | payer OTHER, MEDICARE, SELFPAY | PROVIDERS: PCP Internal Medicine; Visit Provider Internal Medicine | DX: J44.1 Chronic obstructive pulmonary disease with (acute) exacerbation (principal) | CPT/HCPCS: 99202 ==

== ENCOUNTER 2021-04-08 07:53 | Outpatient (REF) | payer MEDICARE, SELFPAY ==
[2021-04-08 08:02] VITALS: BP 133/78; PULSE 99; RESP 16; TEMP 36.2; O2SAT 99
[2021-04-08 08:03] VITALS: BMI 26.2
[2021-04-08 08:39] VITALS: BP 121/59; PULSE 96; RESP 18; O2SAT 96
--- NOTE | 2021-04-08 09:22 | P.OP_ITS ---
Operative Note Operative Note Date of Service: 04/08/21 Narrative: Preoperative diagnosis: Epidermal inclusion cyst left face Postoperative diagnosis: Same Procedure: Excision of epidermal inclusion cyst left face Surgeon: Franky Ulrich MD Fulfillment Coordinator: No physician Anesthesia: Local Indications for procedure: 80-year-old female presenting with an enlarging facial skin cyst measuring approximately 2 cm located in the pre-auricular region Operative findings: An apparent epidermal inclusion cyst, multilobulated located in the preauricular region left face Specimen: Epidermal inclusion cyst Estimated blood loss: 5 mL Complications: None Procedure details: Patient was brought to the minor surgery suite and placed in a prone position. The site of surgery was confirmed by the patient in the left face. After assuring informed consent, the skin was prepped with Betadine and draped in a sterile fashion. Local anesthesia consisting of 1% lidocaine with epinephrine was infiltrated around the lesion. A longitudinal elliptical incision was then created with a scalpel carried out through subcutaneous tissue. Sharp dissection was then used to dissect the lesion from the surrounding subcutaneous tissue. The lesion was passed off the table and sent to pathology for further examination. After assuring adequate hemostasis skin was closed using interrupted 5 0 nylon sutures. A sterile 2 x 2 gauze and Tegaderm were then applied. The patient tolerated the procedure well. She was discharged to home in stable condition.
== END 2021-04-08 07:54 | disposition home or self-care (01) ==
LOC: HO.MS 07:53
PROVIDERS: PCP Internal Medicine; Visit Provider Surgery
PROC: (CPT 11443; principal; 2021-04-08 08:00)
DX: D23.39 Other benign neoplasm of skin of other parts of face (principal)
CPT/HCPCS: 11443; 88304; 88305

== ENCOUNTER → 2021-04-15 09:56 | Outpatient (BNVA) | payer MEDICARE, SELFPAY | PROVIDERS: PCP Internal Medicine; Referring Provider Internal Medicine; Visit Provider Surgery | DX: Z48.817 Encounter for surgical aftercare following surgery on the skin and subcutaneous tissue (principal); Z87.2 Personal history of diseases of the skin and subcutaneous tissue | CPT/HCPCS: 99212 ==

== ENCOUNTER → 2021-06-21 13:35 | Outpatient (BNVA) | payer MEDICARE, SELFPAY | PROVIDERS: PCP Internal Medicine; Visit Provider Internal Medicine | DX: J44.1 Chronic obstructive pulmonary disease with (acute) exacerbation (principal) | CPT/HCPCS: 99212 ==

== ENCOUNTER → 2022-02-02 13:10 | Outpatient (BNVA) | payer MEDICARE, SELFPAY | PROVIDERS: PCP Internal Medicine; Visit Provider Internal Medicine | DX: J44.9 Chronic obstructive pulmonary disease, unspecified (principal) | CPT/HCPCS: 99212 ==

== ENCOUNTER 2022-02-10 13:54 | Outpatient (REF) | payer MEDICARE, SELFPAY ==
--- NOTE | ~2022-02-10 | US_ITS ---
EXAMINATION: US SOFT TISSUE NECK CLINICAL INFORMATION: Left neck swelling. COMPARISON: None TECHNIQUE: Ultrasound of the neck soft tissues is performed with high- frequency reddy-scale imaging and color Doppler. FINDINGS: In the region of the palpable lump in the left submandibular region is a heterogeneous ovoid mass with horizontal orientation and smooth margins measuring approximately 3.7 x 3.4 x 3.4 cm. A similar appearing, smaller nodule in the submandibular region measures 2.3 x 1.1 x 1.5 cm. A reniform lymph node in the left submandibular region measures 1.3 cm in long axis. US/US soft tiss head and/or neck IMPRESSION: Left submandibular mass and smaller similar nodule/lymph node correlate with the palpable lump demonstrates abnormal appearance. Malignancy cannot be excluded. Further evaluation with a contrast-enhanced CT scan of the neck soft tissues is recommended.
== END 2022-02-10 13:55 | disposition home or self-care (01) ==
LOC: HO.HMGCX 13:54
PROVIDERS: PCP Internal Medicine; Visit Provider Nurse Practitioner Family
DX: R22.1 Localized swelling, mass and lump, neck (principal)
CPT/HCPCS: 76536

== ENCOUNTER 2022-02-20 11:55 | Outpatient (REF) | payer MEDICARE, SELFPAY ==
[2022-02-20 13:47] LABS: MANUAL DIFF FLAG NO
[2022-02-20 14:00] LABS: Basophils Absolute Auto 0.2 X10*3/uL (0.0-0.2); Basophils Percent Auto 1.3 % (0-2); Eosinophils Absolute Auto 1.8 X10*3/uL (0.0-0.4); Eosinophils Percent Auto 16.3 % (0-4); Hematocrit 39.2 % (37.0-47.0); Hemoglobin 12.4 g/dl (12.0-16.0); Imm Gran Abs Auto 0.04 X10*3/uL (0.00-0.03); Imm Gran Pct Auto 0.4 % (0.0-0.4); Lymphocytes Percent Auto 26.3 % (20-40); Mean Corpuscular HGB Conc 31.6 g/dl (31.0-35.0); Mean Corpuscular Hemoglobin 28.2 pg (27.0-33.0); Mean Corpuscular Volume 89.3 fL (80.0-98.0); Mean Platelet Volume 11.4 fL (9.4-12.3); Monocytes Absolute Auto 1.1 X10*3/uL (0.1-1.2); Monocytes Percent Auto 9.5 % (2-11); Neutrophils Absolute Auto 5.2 x10*3/uL (2.0-8.3); Neutrophils Percent Auto 46.2 % (45-73); Platelet Count 238 X10*3/uL (160-400); Red Blood Count 4.39 X10*6/uL (4.20-5.50); Red Cell Distribution Width 14.6 % (11.0-16.0); White Blood Count 11.3 X10*3/uL (4.8-10.8)
[2022-02-20 14:06] LABS: Alanine Aminotransferase 14 U/L (0-31); Albumin Level 3.7 g/dL (3.5-5.0); Alkaline Phosphatase 69 U/L (39-117); Anion Gap 14 (12-20); Aspartate Amino Transferase 19 U/L (5-31); Bilirubin Total 0.5 mg/dL (0.0-1.0); Blood Urea Nitrogen 22 mg/dL (9-16); Calcium 9.2 mg/dL (8.4-10.2); Carbon Dioxide 25 mmol/L (22-29); Chloride 106 mmol/L (96-108); Cholesterol 201 mg/dL; Estimated Glomerular Filt Rate > 60; Glucose Random 119 mg/dL (60-115); HDL Cholesterol 35 mg/dL; LDL Cholesterol Calculated 144 mg/dl; Potassium 3.8 mmol/L (3.3-5.1); Sodium 141 mmol/L (135-145); Total Protein 6.4 g/dL (6.5-8.0); Triglycerides 114 mg/dL
[2022-02-20 14:30] LABS: TSH reflex Free T4 1.11 uIU/mL (0.32-4.0)
[2022-02-20 14:51] LABS: Creatinine Urine 75.54 mg/dL; Microalbum/Creatinine Ratio Ur 6.6 ug/mg cr
[2022-02-25 22:52] LABS: Mumps Virus IgM Antibody <1:20 titer
== END 2022-02-20 11:56 | disposition home or self-care (01) ==
LOC: HO.HMGCLDS 11:55
PROVIDERS: Nurse Practitioner Family; PCP Internal Medicine; Visit Provider Internal Medicine
DX: R22.1 Localized swelling, mass and lump, neck (principal); E11.9 Type 2 diabetes mellitus without complications; I10 Essential (primary) hypertension
CPT/HCPCS: 36415; 80053; 80061; 82043; 84443; 85025; 86735

== ENCOUNTER 2022-02-28 08:44 | Outpatient (REF) | payer MEDICARE, SELFPAY ==
--- NOTE | ~2022-02-28 | CT_ITS ---
EXAMINATION: CT SOFT TISSUE NECK WITH CONTRAST CLINICAL INFORMATION: Localized swelling. Prior ultrasound demonstrated a left submandibular mass. COMPARISON: Ultrasound of the neck 02/10/2022. TECHNIQUE: Following the intravenous administration of 60 mL of Omnipaque 350 intravenous contrast, helical imaging was performed in the axial plane with generation of coronal and sagittal reformatted images. Noncontrast images with a BB marker in place were also obtained. This CT examination was performed using dose optimization techniques as appropriate, variously including the following: *Automated exposure control *Adjustment of mA and/or kV according to patient size (this includes techniques or standardized protocols for targeted exams where dose is matched to indication/reason for exam; i.e. extremities or head) *Use of iterative reconstruction technique DLP: 260 mGy-cm FINDINGS: There is a well-defined heterogenous the enhancing mass in the left parotid gland, which measures 4.1 x 3.4 x 3.9 cm in oblique AP, transverse and craniocaudal dimensions. It is most prominent in the superficial portion of the left parotid gland extending posteromedially. There are multiple small lymph nodes in the left neck, measuring up to 1.2 cm. The right parotid gland has relatively fatty attenuation. The submandibular glands are atrophic bilaterally. No contour abnormality or pathologic enhancement is seen within the oral cavity or pharyngeal mucosal space. The vocal fold are opposed. There is equivocal loss of the fat in the left aryepiglottic fold. The parapharyngeal fat is otherwise preserved. There are atheromatous calcifications at the carotid bifurcations bilaterally, and the cervical left internal carotid artery is tortuous extending to the midline. There are atheromatous calcifications of the aortic arch and at the origins of the great vessels of the neck. No extra mucosal soft tissue mass or fluid collection is seen. No retropharyngeal fluid collection is seen. The thyroid gland has multiple small areas of low attenuation in the left and right lobes, which are not clinically significant. There are multiple bullae in the right chest. There is trace fluid at the left mastoid tip. There is extensive opacification of the bilateral ethmoid and frontal sinuses and there is mucoperiosteal thickening in the right greater than left maxillary sinuses. There are multiple small polyps off the inferior turbinate bones posteriorly. The temporomandibular joints are normal. No periapical disease is identified; there are multiple carious teeth. There are spondylitic and facet arthropathic changes in the cervical spine. There is a degenerative anterolisthesis of C2 on C3 and there is a retrolisthesis of C4 on C5. There have been bilateral lens extractions. The visualized intracranial structures are unremarkable. CT/CT soft tissue neck w con IMPRESSION: 1. 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 It is well-defined, but has heterogenous enhancement. It may be consistent with benign parotid gland tumor such as a pleomorphic adenoma or Warthin's tumor, but a more aggressive tumor such as a mucoepidermoid carcinoma, adenoid cystic carcinoma or lymphoepithelial carcinoma should also be considered. There is no cervical lymphadenopathy. 2. The larynx is suboptimally visualized as the vocal folds are opposed and there is equivocal loss of fat in the left aryepiglottic fold. This could be correlated clinically. 3. There is extensive opacification of the sphenoid and frontal sinuses bilaterally.
[2022-02-28] MEDS: iohexoL 350 MG/ML 100 ML INFUS..BTL IV (09:54)
== END 2022-02-28 08:45 | disposition home or self-care (01) ==
LOC: HO.CT 08:44
PROVIDERS: Visit Provider Nurse Practitioner Family
DX: R22.1 Localized swelling, mass and lump, neck (principal)
CPT/HCPCS: 70491; Q9967

== ENCOUNTER 2022-08-19 16:07 | Emergency (ER) | payer MEDICARE, SELFPAY ==
--- NOTE | ~2022-08-19 | US_ITS ---
EXAMINATION: US soft tiss head and/or neck CLINICAL INFORMATION: Reason for Exam to left jaw has swelling after biopsy COMPARISON: Neck ultrasound 02/10/2022, CT neck 02/28/2022 TECHNIQUE: Targeted ultrasound of the left neck was performed utilizing a linear array transducer. FINDINGS: 3.9 x 4.2 x 3.4 cm hypoechoic partially cystic partially solid mass with some mild internal vascularity in the solid portions of the lesion in the left parotid gland region at the site of the prior mass. This previously measured 4.1 x 3.4 x 3.9 cm in size on CT 02/28/2022 and 3.7 x 3.4 x 3.4 cm in size on prior ultrasound 02/10/2022. New anechoic cystic area more superficially within the lesion could represent a small amount of postbiopsy intralesional fluid/hemorrhage. 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
[2022-08-19 16:10] VITALS: BP 155/71; PULSE 100; RESP 20; TEMP 36.6; O2SAT 98; BMI 28.2
--- NOTE | 2022-08-19 16:17 | ED.GENADULT ---
HPI - General Adult General Chief complaint: Skin/Abscess/Foreign Body <MARILYN Salinas - Last Filed: 08/19/22 16:19> Stated complaint: facial swelling sent by urgent care <MARILYN Salinas - Last Filed: 08/19/22 16:19> Time Seen by Provider: 08/19/22 21:49 <MARILYN Salinas - Last Filed: 08/19/22 16:19> Source: patient <Clinton Hernandez MD - Last Filed: 08/19/22 22:28> Mode of arrival: ambulatory <Clinton Hernandez MD - Last Filed: 08/19/22 22:28> Limitations: no limitations <Clinton Hernandez MD - Last Filed: 08/19/22 22:28> History of Present Illness HPI narrative: 82-year-old female presents swelling to the left face. Patient had a biopsy below and behind the left ear approximately 2 weeks ago. Since then she has had progressive swelling and discomfort. She has had no fevers or chills. There has been no redness to the skin. There is no clear relieving or exacerbating features. There has been no drainage. Patient denies any difficulty swallowing or breathing. Patient did attempt to get in with her ENT who performed a biopsy but was unable to do so. <Clinton Hernandez MD - Last Filed: 08/19/22 22:28> Related Data Home medications: Previous Rx's Medication Instructions Recorded ibuprofen 800 mg tablet 800 mg PO TID PRN pain 10 days #30 10/21/21 tabs losartan 25 mg tablet 25 mg PO BID #180 tabs 05/27/22 Trelegy Ellipta 200 mcg-62.5 1 ea PO DAILY #180 ea 06/12/22 mcg-25 mcg powder for inhalation (hykobnevfpz-rsseohknl-phgtwrzt) prednisone 10 mg tablet 10 mg PO BID PRN Wheezing #10 tabs 06/26/22 hydrochlorothiazide 25 mg tablet 25 mg PO DAILY #90 tabs 07/17/22 prednisone 10 mg tablet 10 mg PO BID copd 5 days #10 tabs 07/29/22 hydroxyzine HCl 25 mg tablet 25 mg PO TID PRN itching and rash 08/02/22 30 days #90 tabs atorvastatin 10 mg tablet 10 mg PO BEDTIME #90 tabs 08/05/22 Farxiga 10 mg tablet 10 mg PO QAM 30 days #30 tabs 08/16/22 (dapagliflozin) cetirizine 10 mg tablet 10 mg PO DAILY 30 days #30 tabs 08/16/22 famotidine 20 mg tablet 20 mg PO BID 15 days #30 tabs 08/16/22 montelukast 10 mg tablet 10 mg PO BEDTIME 30 days #30 tabs 08/16/22 doxycycline hyclate 100 mg tablet 100 mg PO BID 7 days #14 tabs 08/19/22 <MARILYN Salinas - Last Filed: 08/19/22 16:19> Allergies/adverse reactions: Allergies Allergy/AdvReac Type Severity Reaction Status Date / Time latex [LATEX] Allergy Severe RASH, Verified 08/16/22 12:29 DIFFICULTY BREATHING cortisone [Cortisone] Allergy Mild HIVES Verified 08/16/22 12:29 <MARILYN Salinas - Last Filed: 08/19/22 16:19> Review of Systems Review of Systems: Yes all other systems are reviewed and are negative <Clinton Hernandez MD - Last Filed: 08/19/22 22:28> [facility] Past Medical History Medical History: Medical History Asthma Benign essential hypertension COPD (chronic obstructive pulmonary disease) Diabetes mellitus Epidermoid cyst of face GERD without esophagitis Hyperlipidemia Low back pain Overweight (BMI 25.0-29.9) Pure hypercholesterolemia Stasis edema of both lower extremities <MARILYN Salinas - Last Filed: 08/19/22 16:19> Surgical History: Surgical History History of breast lump/mass excision History of removal of cyst Status post re-excision of malignant skin lesion <MARILYN Salinas - Last Filed: 08/19/22 16:19> Family History Family History: Family History Sister Breast cancer Other Family history unknown <MARILYN Salinas - Last Filed: 08/19/22 16:19> Social History Social History: Social History Household Members: Children Housing: House Are you a primary personal care service provider to a significant other at home: No Do you presently have visiting nurse or other home services: No Alcohol intake: never Patient Tobacco Use Status: Never used Tobacco Smoked in Last 30 Days: No Second Hand Smoke Exposure: Yes Use of substances other than those prescribed or required for medical reasons: No Advance Directives: No Advance Directives Information Provided: No service: No Current occupational status: retired Cognitive needs: No Hearing needs: Yes Vision needs: Yes <MARILYN Salinas - Last Filed: 08/19/22 16:19> Physical Exam ED Vital Signs: Vital Signs - 24 hr 08/19/22 16:10 08/19/22 20:17 Temperature 97.9 F 97.6 F Pulse Rate 100 101 H Respiratory Rate 20 16 Blood Pressure 155/71 H 140/77 H Pulse Oximetry 98 97 Oxygen Delivery Method Room Air Room Air BMI result Body Mass Index 28.2 <MARILYN Salinas - Last Filed: 08/19/22 16:19> Vital Signs - 24 hr 08/19/22 16:10 08/19/22 20:17 Temperature 97.9 F 97.6 F Pulse Rate 100 101 H Respiratory Rate 20 16 Blood Pressure 155/71 H 140/77 H Pulse Oximetry 98 97 Oxygen Delivery Method Room Air Room Air BMI result Body Mass Index 28.2 GEN: Well developed, no acute distress, alert, oriented HEENT: Normocephalic, atraumatic, normal external ears, nose appears normal , no wheezing or stridor, 4 cm area around the parotid gland swelling. No surrounding erythema, no tenderness Eyes: Normal to appearance Neck: Supple, no lymphadenopathy Respiratory: Talks in complete sentences, no respiratory distress Extremities: No clubbing cyanosis or edema Neurologic: No focal neurologic deficits, cranial nerves 2-12 intact, gait normal Skin: No rash <Clinton Hernandez MD - Last Filed: 08/19/22 22:28> Course Course Course Narrative: SHAHEEN- 16:18PM - 82yoF presenting to the ER with her daughter at bedside with complaints of swelling to the left side of her jaw that started shortly after her biopsy she had in [place] on August 10. Reports that she had a small lump before and after the biopsy now she has a swelling. Denies any fevers, trouble swallowing or breathing, dental pain, sore throat or any other symptoms complaints or concerns at this time. Plan: Will obtain labs and ultrasound of this area. [facility] <MARILYN Salinas - Last Filed: 08/19/22 16:19> Reevaluation(s) Reevaluation #1: it is 10 30 at night. The workup is complete. Ultrasound identified a fluid collection. I attempted an incision and drainage both with needle decompression followed by a 10 blade scalpel incision approximately 1 cm in length. I explored the cavity. There is no purulent material. There is no bleeding. There is no evidence of a seroma. At this time, we will place the patient on prophylactic antibiotics and have follow-up with ENT. Patient is aware that should she have difficulty breathing or swelling to return immediately <Clinton Hernandez MD - Last Filed: 08/19/22 22:28> Time: 22:25 <Clinton Hernandez MD - Last Filed: 08/19/22 22:28> Medical Decision Making Medical Decision Making [facility] Narrative: 82-year-old female presents after biopsy with swelling to the left face. Examination revealed a 4 cm fluctuant area. Ultrasound identified a fluid collection. She does have a mild white count elevation which is persistent and chronic in nature. There is no intervention needed at this time for this lab value. Incision and drainage was attempted. No drainage was obtainable. Patient will be discharged to follow-up with her ENT. <Clinton Hernandez MD - Last Filed: 08/19/22 22:28> Differential Diagnosis Differential Diagnoses: The differential diagnosis associated with the presentation includes ( Abscess, seroma, hematoma) <Clinton Hernandez MD - Last Filed: 08/19/22 22:28> fluid collection <Clinton Hernandez MD - Last Filed: 08/19/22 22:28> Admission/Observation Consideration of admission/observation: Escalation of care including admission/observation considered <Clinton Hernandez MD - Last Filed: 08/19/22 22:28> Lab Data [facility] Lab Attestation statement: I reviewed the patient's lab results. <Clinton Hernandez MD - Last Filed: 08/19/22 22:28> Result Diagrams: 08/19/22 17:01 08/19/22 17:01 <MARILYN Salinas - Last Filed: 08/19/22 16:19> Labs: Lab Results 08/19/22 08/19/22 08/19/22 Range/Units 17:01 17:01 17:01 WBC 13.8 H (4.8-10.8) X10*3/uL RBC 4.73 (4.20-5.50) X10*6/uL Hgb 13.1 (12.0-16.0) g/dl Hct 41.0 (37.0-47.0) % MCV 86.7 (80.0-98.0) fL MCH 27.7 (27.0-33.0) pg MCHC 32.0 (31.0-35.0) g/dl RDW 14.4 (11.0-16.0) % Plt Count 256 (160-400) X10*3/uL MPV 10.8 (9.4-12.3) fL Immature Gran % (Auto) 0.4 (0.0-0.4) % Neut % (Auto) 85.2 H (45-73) % Lymph % (Auto) 8.0 L (20-40) % [place] % (Auto) 5.4 (2-11) % Eos % (Auto) 0.6 (0-4) % Baso % (Auto) 0.4 (0-2) % Lymph # (Auto) 1.1 L (1.2-4.9) X10*3/uL [place] # (Auto) 0.8 (0.1-1.2) X10*3/uL Eos # (Auto) 0.1 (0.0-0.4) X10*3/uL Baso # (Auto) 0.1 (0.0-0.2) X10*3/uL Abs Immat Gran (auto) 0.06 H (0.00-0.03) X10*3/uL Absolute Neuts (auto) 11.8 H (2.0-8.3) x10*3/uL Absolute Nucleated RBC 0.000 (0.0-0.012) X10*3/uL Nucleated RBC % (auto) 0.0 (0.0-0.2) /100WBC ESR 28 H (0-20) MM/HR PT (10.0-13.1) SEC INR (0.9-1.1) Sodium 142 (135-145) mmol/L Potassium 4.1 (3.3-5.1) mmol/L Chloride 105 (96-108) mmol/L Carbon Dioxide 25 (22-29) mmol/L Anion Gap 16 (12-20) BUN 18 H (9-16) mg/dL Creatinine 1.02 (0.5-1.4) mg/dL Estim Creat Clear Calc 31.7 Estimated GFR 52 Random Glucose 248 H (60-115) mg/dL Calcium 9.4 (8.4-10.2) mg/dL Magnesium 2.1 (1.6-2.6) mg/dL Total Bilirubin 0.6 (0.0-1.0) mg/dL AST 28 (5-31) U/L ALT 19 (0-31) U/L Alkaline Phosphatase 89 (39-117) U/L C-Reactive Protein 3.52 H (< or = 0.50) mg/dL Total Protein 6.9 (6.5-8.0) g/dL Albumin 3.9 (3.5-5.0) g/dL 08/19/22 Range/Units 17:01 WBC (4.8-10.8) X10*3/uL RBC (4.20-5.50) X10*6/uL Hgb (12.0-16.0) g/dl Hct (37.0-47.0) % MCV (80.0-98.0) fL MCH (27.0-33.0) pg MCHC (31.0-35.0) g/dl RDW (11.0-16.0) % Plt Count (160-400) X10*3/uL MPV (9.4-12.3) fL Immature Gran % (Auto) (0.0-0.4) % Neut % (Auto) (45-73) % Lymph % (Auto) (20-40) % [place] % (Auto) (2-11) % Eos % (Auto) (0-4) % Baso % (Auto) (0-2) % Lymph # (Auto) (1.2-4.9) X10*3/uL [place] # (Auto) (0.1-1.2) X10*3/uL Eos # (Auto) (0.0-0.4) X10*3/uL Baso # (Auto) (0.0-0.2) X10*3/uL Abs Immat Gran (auto) (0.00-0.03) X10*3/uL Absolute Neuts (auto) (2.0-8.3) x10*3/uL Absolute Nucleated RBC (0.0-0.012) X10*3/uL Nucleated RBC % (auto) (0.0-0.2) /100WBC ESR (0-20) MM/HR PT 12.4 (10.0-13.1) SEC INR 1.1 (0.9-1.1) Sodium (135-145) mmol/L Potassium (3.3-5.1) mmol/L Chloride (96-108) mmol/L Carbon Dioxide (22-29) mmol/L Anion Gap (12-20) BUN (9-16) mg/dL Creatinine (0.5-1.4) mg/dL Estim Creat Clear Calc Estimated GFR Random Glucose (60-115) mg/dL Calcium (8.4-10.2) mg/dL Magnesium (1.6-2.6) mg/dL Total Bilirubin (0.0-1.0) mg/dL AST (5-31) U/L ALT (0-31) U/L Alkaline Phosphatase (39-117) U/L C-Reactive Protein (< or = 0.50) mg/dL Total Protein (6.5-8.0) g/dL Albumin (3.5-5.0) g/dL <MARILYN Salinas - Last Filed: 08/19/22 16:19> Lab Results 08/19/22 08/19/22 08/19/22 Range/Units 17:01 17:01 17:01 WBC 13.8 H (4.8-10.8) X10*3/uL RBC 4.73 (4.20-5.50) X10*6/uL Hgb 13.1 (12.0-16.0) g/dl Hct 41.0 (37.0-47.0) % MCV 86.7 (80.0-98.0) fL MCH 27.7 (27.0-33.0) pg MCHC 32.0 (31.0-35.0) g/dl RDW 14.4 (11.0-16.0) % Plt Count 256 (160-400) X10*3/uL MPV 10.8 (9.4-12.3) fL Immature Gran % (Auto) 0.4 (0.0-0.4) % Neut % (Auto) 85.2 H (45-73) % Lymph % (Auto) 8.0 L (20-40) % [place] % (Auto) 5.4 (2-11) % Eos % (Auto) 0.6 (0-4) % Baso % (Auto) 0.4 (0-2) % Lymph # (Auto) 1.1 L (1.2-4.9) X10*3/uL [place] # (Auto) 0.8 (0.1-1.2) X10*3/uL Eos # (Auto) 0.1 (0.0-0.4) X10*3/uL Baso # (Auto) 0.1 (0.0-0.2) X10*3/uL Abs Immat Gran (auto) 0.06 H (0.00-0.03) X10*3/uL Absolute Neuts (auto) 11.8 H (2.0-8.3) x10*3/uL Absolute Nucleated RBC 0.000 (0.0-0.012) X10*3/uL Nucleated RBC % (auto) 0.0 (0.0-0.2) /100WBC ESR 28 H (0-20) MM/HR PT (10.0-13.1) SEC INR (0.9-1.1) Sodium 142 (135-145) mmol/L Potassium 4.1 (3.3-5.1) mmol/L Chloride 105 (96-108) mmol/L Carbon Dioxide 25 (22-29) mmol/L Anion Gap 16 (12-20) BUN 18 H (9-16) mg/dL Creatinine 1.02 (0.5-1.4) mg/dL Estim Creat Clear Calc 31.7 Estimated GFR 52 Random Glucose 248 H (60-115) mg/dL Calcium 9.4 (8.4-10.2) mg/dL Magnesium 2.1 (1.6-2.6) mg/dL Total Bilirubin 0.6 (0.0-1.0) mg/dL AST 28 (5-31) U/L ALT 19 (0-31) U/L Alkaline Phosphatase 89 (39-117) U/L C-Reactive Protein 3.52 H (< or = 0.50) mg/dL Total Protein 6.9 (6.5-8.0) g/dL Albumin 3.9 (3.5-5.0) g/dL 08/19/22 Range/Units 17:01 WBC (4.8-10.8) X10*3/uL RBC (4.20-5.50) X10*6/uL Hgb (12.0-16.0) g/dl Hct (37.0-47.0) % MCV (80.0-98.0) fL MCH (27.0-33.0) pg MCHC (31.0-35.0) g/dl RDW (11.0-16.0) % Plt Count (160-400) X10*3/uL MPV (9.4-12.3) fL Immature Gran % (Auto) (0.0-0.4) % Neut % (Auto) (45-73) % Lymph % (Auto) (20-40) % [place] % (Auto) (2-11) % Eos % (Auto) (0-4) % Baso % (Auto) (0-2) % Lymph # (Auto) (1.2-4.9) X10*3/uL [place] # (Auto) (0.1-1.2) X10*3/uL Eos # (Auto) (0.0-0.4) X10*3/uL Baso # (Auto) (0.0-0.2) X10*3/uL Abs Immat Gran (auto) (0.00-0.03) X10*3/uL Absolute Neuts (auto) (2.0-8.3) x10*3/uL Absolute Nucleated RBC (0.0-0.012) X10*3/uL Nucleated RBC % (auto) (0.0-0.2) /100WBC ESR (0-20) MM/HR PT 12.4 (10.0-13.1) SEC INR 1.1 (0.9-1.1) Sodium (135-145) mmol/L Potassium (3.3-5.1) mmol/L Chloride (96-108) mmol/L Carbon Dioxide (22-29) mmol/L Anion Gap (12-20) BUN (9-16) mg/dL Creatinine (0.5-1.4) mg/dL Estim Creat Clear Calc Estimated GFR Random Glucose (60-115) mg/dL Calcium (8.4-10.2) mg/dL Magnesium (1.6-2.6) mg/dL Total Bilirubin (0.0-1.0) mg/dL AST (5-31) U/L ALT (0-31) U/L Alkaline Phosphatase (39-117) U/L C-Reactive Protein (< or = 0.50) mg/dL Total Protein (6.5-8.0) g/dL Albumin (3.5-5.0) g/dL <Clinton Hernandez MD - Last Filed: 08/19/22 22:28> Independent Interpretation I performed an independent interpretation of an: Ultrasound (Soft tissue: Fluid collection) <Clinton Hernandez MD - Last Filed: 08/19/22 22:28> Radiology Impression Discussion of test interpretation with radiology: I have reviewed the radiologist's reading. 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 Dictated By:Byron ChapmanSigned By:<Electronically signed by Byron Chapman in [place]>08/19/22 [id number]) <Clinton Hernandez MD - Last Filed: 08/19/22 22:28> External Record Review External record reviewed: Office record ( recent Medicare wellness visit on 08/16/2022) <Clinton Hernandez MD - Last Filed: 08/19/22 22:28> Tests considered The following testing was considered but not selected: CT scan <Clinton Hernandez MD - Last Filed: 08/19/22 22:28> Prescription Management I considered prescription management with: Pain Medication and Antibiotic <MD Anais Curry Last Filed: 08/19/22 22:28> Chronic Conditions Patient?s care impacted by: Hypertension <Clinton Hernandez MD - Last Filed: 08/19/22 22:28> Discharge Plan Discharge Clinical Impression: Hematoma <MARILYN Salinas - Last Filed: 08/19/22 16:19> Patient Disposition: Home, Self-Care <MARILYN Salinas - Last Filed: 08/19/22 16:19> Additional Instructions: you were seen today with swelling over the left facial area. Had a recent biopsy. The surrounding skin was not erythematous /red. An ultrasound did identify a moderate-sized fluid collection. We attempted an incision and drainage 1 with needle and secondly with a scalpel. No drainage occurred. Although I doubt this represents an infection, will start you on prophylactic antibiotics for the next couple days until you are able to follow-up with your ENT who can continue to manage the situation. Should he develop severe redness, increasing swelling, difficulty breathing, difficulty swelling, return for re-evaluation. <MARILYN Salinas - Last Filed: 08/19/22 16:19> Prescriptions: New doxycycline hyclate 100 mg tablet 100 mg PO BID 7 Days Qty: 14 0RF No Action ibuprofen 800 mg tablet 800 mg PO TID PRN (Reason: pain) 10 Days Qty: 30 0RF Rx Instructions: TAKE WITH FOOD & ONLY NEEDED losartan 25 mg tablet 25 mg PO BID Qty: 180 0RF Trelegy Ellipta 200-62.5-25 mcg blister with device 1 ea PO DAILY Qty: 180 0RF prednisone 10 mg tablet 10 mg PO BID PRN (Reason: Wheezing) Qty: 10 0RF hydrochlorothiazide 25 mg tablet 25 mg PO DAILY Qty: 90 1RF prednisone 10 mg tablet 10 mg PO BID 5 Days Qty: 10 0RF hydroxyzine HCl 25 mg tablet 25 mg PO TID PRN (Reason: itching and rash) 30 Days Qty: 90 0RF atorvastatin 10 mg tablet 10 mg PO BEDTIME Qty: 90 1RF Farxiga 10 mg tablet 10 mg PO QAM 30 Days Qty: 30 3RF montelukast 10 mg tablet 10 mg PO BEDTIME 30 Days Qty: 30 1RF famotidine 20 mg tablet 20 mg PO BID 15 Days Qty: 30 0RF cetirizine 10 mg tablet 10 mg PO DAILY 30 Days Qty: 30 1RF <Lindsey Severino, PA - Last Filed: 08/19/22 16:19>
[2022-08-19 17:07] LABS: MANUAL DIFF FLAG NO
[2022-08-19 17:08] LABS: Basophils Absolute Auto 0.1 X10*3/uL (0.0-0.2); Basophils Percent Auto 0.4 % (0-2); Eosinophils Absolute Auto 0.1 X10*3/uL (0.0-0.4); Eosinophils Percent Auto 0.6 % (0-4); Hemoglobin 13.1 g/dl (12.0-16.0); Imm Gran Abs Auto 0.06 X10*3/uL (0.00-0.03); Imm Gran Pct Auto 0.4 % (0.0-0.4); Lymphocytes Absolute Auto 1.1 X10*3/uL (1.2-4.9); Mean Corpuscular Hemoglobin 27.7 pg (27.0-33.0); Mean Corpuscular Volume 86.7 fL (80.0-98.0); Mean Platelet Volume 10.8 fL (9.4-12.3); Monocytes Absolute Auto 0.8 X10*3/uL (0.1-1.2); Monocytes Percent Auto 5.4 % (2-11); Neutrophils Absolute Auto 11.8 x10*3/uL (2.0-8.3); Neutrophils Percent Auto 85.2 % (45-73); Platelet Count 256 X10*3/uL (160-400); Red Blood Count 4.73 X10*6/uL (4.20-5.50); Red Cell Distribution Width 14.4 % (11.0-16.0); White Blood Count 13.8 X10*3/uL (4.8-10.8)
[2022-08-19 17:14] LABS: INTERNATIONAL NORM RATIO 1.1 (0.9-1.1); Prothrombin Time 12.4 SEC (10.0-13.1)
[2022-08-19 17:21] LABS: Alanine Aminotransferase 19 U/L (0-31); Albumin Level 3.9 g/dL (3.5-5.0); Alkaline Phosphatase 89 U/L (39-117); Anion Gap 16 (12-20); Aspartate Amino Transferase 28 U/L (5-31); Bilirubin Total 0.6 mg/dL (0.0-1.0); Blood Urea Nitrogen 18 mg/dL (9-16); C Reactive Protein 3.52 mg/dL (< or = 0.50); Calcium 9.4 mg/dL (8.4-10.2); Carbon Dioxide 25 mmol/L (22-29); Chloride 105 mmol/L (96-108); Creatinine Clr Calc Pharmacy 31.7; Estimated Glomerular Filt Rate 52; Glucose Random 248 mg/dL (60-115); Magnesium 2.1 mg/dL (1.6-2.6); Potassium 4.1 mmol/L (3.3-5.1); Sodium 142 mmol/L (135-145); Total Protein 6.9 g/dL (6.5-8.0)
[2022-08-19 18:44] LABS: Erythrocyte Sedimentation Rate 28 MM/HR (0-20)
--- NOTE | 2022-08-19 20:10 | PC.NURSE ---
pt states she got a bx for a small mass on her L jaw that resulted in it being benign swelling on face has continued to grow in size since bx and pain began last night pt describes pain as throbbing pt states she also feels fatigued denies n/v/f/change in bm/change in urination pattern
[2022-08-19 20:17] VITALS: BP 140/77; PULSE 101; RESP 16; TEMP 36.4; O2SAT 97
[2022-08-19] MEDS: Doxycycline Monohydrate 100 MG CAPSULE PO (22:41)
--- NOTE | 2022-08-19 22:57 | PC.NURSE ---
discharge instructions given/explained to pt, ambulates independently/safely with cane, no apparent distress, pt leaving with daughter, pt medicated on discharge
== END 2022-08-19 22:56 | disposition home or self-care (01) ==
PROVIDERS: Physician Assistant Medical; Emergency Provider Emergency Medicine; PCP Internal Medicine
DX: L76.32 Postprocedural hematoma of skin and subcutaneous tissue following other procedure (principal); R22.0 Localized swelling, mass and lump, head; I10 Essential (primary) hypertension; E11.9 Type 2 diabetes mellitus without complications; E78.00 Pure hypercholesterolemia, unspecified; Z79.02 Long term (current) use of antithrombotics/antiplatelets; Z79.899 Other long term (current) drug therapy
CPT/HCPCS: 10060; 10140; 36415; 76536; 80053; 83735; 85025; 85610; 85652; 86140; 99284

== ENCOUNTER 2022-11-13 12:54 | Outpatient (AMB) | payer MEDICARE, SELFPAY ==
[2022-11-13 13:17] VITALS: BMI 26.3
--- NOTE | 2022-11-13 13:17 | MHC.PC.OV ---
Vital Signs 11/13/22 13:17 11/13/22 13:29 Height 4 ft 10 in Weight 126 lb BMI 26.3 BP 120/86 Blood Pressure Location Lt brachial Lt brachial Position Sitting Sitting Pulse 88 Pulse Source Pulse Oximeter Pulse Oximeter Pulse Oximetry (%) 96 Oxygen Delivery Method Room Air Room Air Intake Visit Reasons: DM, hives Intake Note: Patient is here to discuss DM and hives. County Sheriff Required: No Accompanied by: Self / Same As Patient Allergies latex [LATEX] Allergy (Severe, Verified 11/13/22 14:06) RASH, DIFFICULTY BREATHING cortisone [Cortisone] Allergy (Mild, Verified 11/13/22 14:06) HIVES Medication List - Last Reconciled 11/13/22 by Josiah Cunningham MD atorvastatin 10 mg PO BEDTIME cetirizine 10 mg PO DAILY 30 days famotidine 20 mg PO BID 30 days Farxiga (dapagliflozin) 10 mg PO QAM 30 days NS hydrochlorothiazide 25 mg PO DAILY ibuprofen 800 mg PO TID PRN 10 days losartan 25 mg PO BID montelukast 10 mg PO BEDTIME 30 days Trelegy Ellipta 200-62.5-25 mcg (cgxjcmjldsb-ucyorutct-[id number]) 1 ea PO DAILY NS Tobacco use date assessed: 11/13/22 Fall risk assessment: No Falls in past year HPI DM, hives HPI Details Patient comes in today for her follow up visit States that she feels okay Denies any headaches or dizziness Denies any chest pains, no increased SOB No nausea/vomiting, no abdominal pain No change in bowel habits noted States that she has not had any recurrent itchy rash lately [facility] Medical History Asthma Benign essential hypertension COPD (chronic obstructive pulmonary disease) Diabetes mellitus Epidermoid cyst of face GERD without esophagitis Hyperlipidemia Low back pain Overweight (BMI 25.0-29.9) Pure hypercholesterolemia Stasis edema of both lower extremities Surgical History History of breast lump/mass excision History of removal of cyst Status post re-excision of malignant skin lesion Family History Sister Breast cancer Other Family history unknown Social History Household Members: Children Housing: House Are you a primary nurse behavioral health care to a significant other at home: No Do you presently have visiting nurse or other home services: No Alcohol intake: never Patient Tobacco Use Status: Never used Tobacco e-Cigarette/Vaping Use: Never Used Second Hand Smoke Exposure: Yes service: No Current occupational status: retired Cognitive needs: No Hearing needs: Yes Vision needs: Yes Questionnaire PHQ-9 Over the last 2 weeks, how often have you been bothered by any of the following problems? 1. Little interest or pleasure in doing things: not at all 2. Feeling down, depressed, or hopeless: not at all 3. Trouble falling or staying asleep, or sleeping too much: more than half the days 4. Feeling tired or having little energy: not at all 5. Poor appetite or overeating: not at all 6. Feeling bad about yourself - or that you are a failure or have let yourself or your family down: not at all 7. Trouble concentrating on things, such as reading the newspaper or watching television: not at all 8. Moving or speaking so slowly that other people could have noticed. Or the opposite - being so fidgety or restless that you have been moving around a lot more than usual: not at all 9. Thoughts that you would be better off or of hurting yourself in some way: not at all Total score: 2 Depression Screening Interpretation: Negative 27777 - PHQ-9 Billing: Yes Source: Developed by Drs. Hemanth Pierson, Jailene Vieira, Evangelist Sierra and colleagues, with an educational kiesha from [employer]. Thrive Questionnaire Date Thrive assessed: 11/13/22 I am a: Patient What is your living situation today?: I have a steady place to live Within the past 12 months, did the food you bought not last and you didn't have the money to get more?: Never true Within the past 12 months, did you worry whether your food would run out before you got money to buy more?: Never true Do you have trouble paying for medicines?: No Do you have trouble getting transportation to medical appointments?: No Do you have trouble paying your heating and electricity bill?: No Do you have trouble taking care of your child, family member or friend?: No Do you have trouble with day-to-day activities such as bathing, preparing meals, shopping, managing finances, etc.?: No Are you currently unemployed and looking for a job?: No Are you interested in more education?: No Currently or been in a relationship where the following occur: no concerns reported AUDIT C Alcohol Use Questionnaire (AUDIT-C) 1. How often do you have a drink containing alcohol?: Never 3. How often do you have six or more drinks on one occasion?: Never Total Score: 0 Score Reviewed/Action Taken: Yes LAURA-7 AMB Questionnaire LAURA-7 Date LAURA - 7 assessed: 11/13/22 Feeling nervous, anxious, or on edge: 0 = Not at all Not being able to stop or control worryin = Not at all Worrying too much about different things: 0 = Not at all Trouble relaxin = Not at all Being so restless that it is hard to sit still: 0 = Not at all Becoming easily annoyed or irritable: 0 = Not at all Feeling afraid as if something awful might happen: 0 = Not at all Total LAURA-7 score (0-4 normal; 5-9 mild; 10-14 moderate; 15-21 severe): 0 Source: Developed by Drs. Hemanth Pierson, Jailene Vieira, Evangelist Sierra and colleagues, with an educational kiesha from [employer]. LAURA-7 Assessment Billing LAURA-7 Assessment Tool: LAURA-7 Assessment 50008 Review of Systems Const Denies chills, Reports fatigue, Denies fever(s) and Denies headache(s) ENT Denies dysphagia, Denies dizziness, Denies otalgia, Denies headache(s), Denies odynophagia, Denies sinus pain and Denies sore throat Card Denies chest pain, Denies palpitations and Denies dyspnea Resp Denies cough and Denies dyspnea GI Denies abdominal pain, Denies constipation, Denies dysphagia, Denies heartburn, Denies diarrhea, Denies nausea, Denies odynophagia and Denies vomiting Denies difficulty voiding, Denies nocturia and Denies dysuria Skin/Breast Reports pruritus and Reports rash (hives - generalized) Neuro Denies dizziness and Denies headache(s) Endo Reports fatigue and Denies palpitations Negrito/Lymph Details: (+) swelling of both lower legs and feet Physical exam (Primary Care) Vital Signs: Last Vital Signs Pulse 88 11/13/22 13:29 BP 120/86 11/13/22 13:29 Pulse Ox 96 11/13/22 13:29 Oxygen Delivery Method Room Air 11/13/22 13:29 BMI result Body Mass Index 26.3 Tobacco/Smoking Status: Tobacco use Status Tobacco use date assessed 11/13/22 11/13/22 13:19 Patient Tobacco Use Status Never used Tobacco 11/13/22 13:19 e-Cigarette/Vaping Use Never Used 11/13/22 13:19 PHQ-9: PHQ-9 Score PHQ-9: Total score 2 11/13/22 13:51 Depression Screening Interpretation: Negative Thrive Assessment: Date of Thrive Assessment Date Thrive assessed 11/13/22 11/13/22 13:19 Currently or been in a relationship where the following occur: no concerns reported Results AMB Hemoglobin A1c AMB Hemoglobin A1c 10.4 % Last Edit by Ever Mitchell on 11/13/22 13:52 Results Reviewed Results Reviewed: Laboratory Last Values Hgb A1c (Clinic) 10.4 % (4.0-6.0) H 11/13/22 13:35 Laboratory Tests 08/19/22 08/19/22 08/19/22 17:01 17:01 17:01 WBC 13.8 H Hgb 13.1 Hct 41.0 Plt Count 256 Neut % (Auto) 85.2 H ESR 28 H Sodium 142 Potassium 4.1 Creatinine 1.02 Estimated GFR 52 Random Glucose 248 H Hgb A1c (Clinic) Calcium 9.4 Magnesium 2.1 AST 28 ALT 19 C-Reactive Protein 3.52 H 11/13/22 13:35 WBC Hgb Hct Plt Count Neut % (Auto) ESR Sodium Potassium Creatinine Estimated GFR Random Glucose Hgb A1c (Clinic) 10.4 H Calcium Magnesium AST ALT C-Reactive Protein Assessment and Plan Assessment & Plan (1) Diabetes mellitus: Code(s): E11.9 - Type 2 diabetes mellitus without complications Qualifiers: Diabetes mellitus type: type 2 Diabetes mellitus supervisor intermediates insulin use: without jail use Diabetes mellitus complication status: without complication Qualified Code(s): E11.9 - Type 2 diabetes mellitus without complications Orders: Orders Complete Blood Count Auto Diff 4 Months I10 - Essential (primary) hypertension Comprehensive [place]. Panel Fast 4 Months E78.00 - Pure hypercholesterolemia, unspecified Lipid Panel 4 Months E78.00 - Pure hypercholesterolemia, unspecified TSH reflex Free T4 4 Months E78.00 - Pure hypercholesterolemia, unspecified UA CC w/rflx Micro + Cult 4 Months R30.0 - Dysuria Vitamin D 25-OH Total 4 Months E55.9 - Vitamin D deficiency, unspecified Hemoglobin A1c 4 Months E11.9 - Type 2 diabetes mellitus without complications Microalbumin, Random (w Creat) 4 Months E11.9 - Type 2 diabetes mellitus without complications Vitamin B12 and Folate 4 Months E53.8 - Deficiency of other specified B group vitamins AMB Hemoglobin A1c Today Z13.9 - Encounter for screening, unspecified Medications: New metformin ER 500 mg PO DAILY 90 days 90 tabs 1RF E11.9 - Type 2 diabetes mellitus without complications Refilled ibuprofen TAKE WITH FOOD & ONLY NEEDED 800 mg PO TID 10 days PRN 30 tabs 0RF pain Coding Level of Care Code Est Pt Level 4 (32027) Diagnoses Diabetes mellitus E11.9 Diabetes mellitus type: type 2 Diabetes mellitus supervisor intermediates insulin use: without supervisor intermediates use Diabetes mellitus complication status: without complication Additional Codes LAURA-7 Assessment Billing - LAURA-7 Assessment Tool: LAURA-7 Assessment 70407 ([id number])
[2022-11-13 13:29] VITALS: BP 120/86; PULSE 88; O2SAT 96
== END 2022-11-13 14:16 | disposition home or self-care (01) ==
LOC: HO.HMGH 12:54
PROVIDERS: PCP Internal Medicine; Visit Provider Internal Medicine
DX: E11.9 Type 2 diabetes mellitus without complications (principal)
CPT/HCPCS: 99499

== ENCOUNTER 2023-05-02 13:38 | Outpatient (REF) | payer MEDICARE, SELFPAY ==
--- NOTE | ~2023-05-02 | US_ITS ---
EXAMINATION: US SOFT TISSUE HEAD/NECK CLINICAL INFORMATION: Left neck mass, parotid neoplasm. COMPARISON: CT soft tissue neck with contrast 02/28/2022. Ultrasound soft tissue head/neck 08/19/2022 and 02/10/2022. TECHNIQUE: Linear transducer reddy-scale and color Doppler examination of the area indicated by patient left parotid area. FINDINGS: The previously noted hypoechoic partially cystic, partially solid left parotid mass now measures 2.8 x 1.1 x 1.6 cm, diminished from prior measurements of 3.9 x 4.2 x 3.4 cm. This is well marginated, with mild internal vascularity. The adjacent cutaneous, subcutaneous, muscular and fascial planes are unremarkable. 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 Please correlate with prior biopsy findings. Continued ENT evaluation and management is recommended.
== END 2023-05-02 13:39 | disposition home or self-care (01) ==
LOC: HO.HMGCX 13:38
PROVIDERS: PCP Internal Medicine; Visit Provider Otolaryngology
DX: R22.1 Localized swelling, mass and lump, neck (principal); D11.0 Benign neoplasm of parotid gland
CPT/HCPCS: 76536

== ENCOUNTER → 2023-05-04 | Outpatient (RCR) | payer MEDICARE, SELFPAY ==
[2022-03-14 11:25] VITALS: BP 154/72; PULSE 83; RESP 14; TEMP 36.4; O2SAT 97; BMI 28.7
--- NOTE | 2022-03-14 11:39 | PM.HEMONCCN ---
Subjective - Subjective Chief complaint: Consult for left parotid tumor. Patient: new to practice Consult date: 03/14/22 Requesting Physician: Dr.Barbara Jaquez. Primary Care Provider: Josiah Cunningham MD Medical Summary: DIAGNOSIS: LEFT PAROTID TUMOR. HPI - Consult Narrative Reason for consult: Consult for: Left parotid mass. Narrative: Bree Zhu is a 81 year old lady, who noted swelling in front and behind her left ear for about a year or so. She was in house last March and was treated with IV antibiotics. She noted decrease in the swelling. Subsequently the size goes and down. Ultrasound of the neck from 02/10 revealed: Left submandibular mass and smaller similar nodule/lymph node correlate with the palpable lump demonstrates abnormal appearance. Malignancy cannot be excluded. Further evaluation with a contrast-enhanced CT scan of the neck soft tissues is recommended. CT scan of the Soft tissue of the head and neck from 02/28: 1. 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 It is well-defined, but has heterogenous enhancement. It may be consistent with benign parotid gland tumor such as a pleomorphic adenoma or Warthin's tumor, but a more aggressive tumor such as a mucoepidermoid carcinoma, adenoid cystic carcinoma or lymphoepithelial carcinoma should also be considered. There is no cervical lymphadenopathy. 2. The larynx is suboptimally visualized as the vocal folds are opposed and there is equivocal loss of fat in the left aryepiglottic fold. This could be correlated clinically. 3. There is extensive opacification of the sphenoid and frontal sinuses bilaterally. FAMILY HISTORY: A sister had breast cancer in early 60s. SOCIAL HISTORY: She worked at [employer]. She is . She has 2 girls. Denies any smoking or alcohol use. ROS: Denies feeling fatigued. No fever chills or night sweats. Appetite is okay. She denies any weight loss. Denies any pain in the left neck mass. No chest pain or trouble breathing. Sometimes she gets short of breath on exertion. She attributes that to her COPD. He denies any abdominal pain nausea vomiting heartburn indigestion. Denies any diarrhea. She has never had a colonoscopy. Denies any dysuria or hematuria. She has pain in her arms and knees. Her right knee gives out at times. She has a brace on. Sometimes she has to take ibuprofen. She denies depression. No skin rashes or pruritus. Review of Systems - Constitutional Reports no additional constitutional complaints - Eyes Reports no additional eye complaints - ENT Reports no additional ear, nose, mouth, and throat complaints Comments: Left parotid mass. - Cardiovascular Reports no additional cardiovascular complaints - Respiratory Reports no additional respiratory complaints - Gastrointestinal Reports no additional gastrointestinal complaints - Genitourinary Reports no additional female genitourinary complaints - Musculoskeletal Reports no additional musculoskeletal complaints - Integumentary/Breasts Skin/Breast: Reports no additional skin complaints - Neurologic Reports no additional neurologic complaints - Psychiatric Reports no additional psychiatric complaints - Endocrine Reports no additional endocrine complaints - Hematologic/Lymphatic Reports no additional hematologic/lymphatic complaints - Allergic/Immunologic Reports no additional allergic/immunologic complaints Oncology Screenings - ECOG Performance Status ECOG Performance Status: 2 [facility] Medical History: Medical History (Last Reviewed 03/14/22 @ 11:30 by Niki Garcia CMA) Asthma Benign essential hypertension COPD (chronic obstructive pulmonary disease) Diabetes mellitus Epidermoid cyst of face GERD without esophagitis Hyperlipidemia Low back pain Overweight (BMI 25.0-29.9) Stasis edema of both lower extremities Functional capacity: wheelchair bound Patient : No Family History: Family History (Last Reviewed 03/14/22 @ 11:30 by Niki Garcia CMA) Sister Breast cancer Other Family history unknown Surgical History: Surgical History (Last Updated 03/14/22 @ 11:30 by Niki Garcia CMA) History of breast lump/mass excision History of removal of cyst Status post re-excision of malignant skin lesion Social History: Social History (Last Updated 03/14/22 @ 11:31 by Niki Garcia CMA) Living Situation History: Household Members: Children Housing: House Are you a primary medicare coordinator to a significant other at home: No Do you presently have visiting nurse or other home services: No Alcohol History Details: 1. How often do you have a drink containing alcohol?: a. Never Tobacco History: Patient Tobacco Use Status: Never used Tobacco Second Hand Smoke Exposure: Yes Substance Use History: Use of substances other than those prescribed or required for medical reasons: No Domestic Abuse History: Have you been hit, kicked, punched, or otherwise hurt by someone within the past year? If so, by whom?: No Do you feel safe in your current relationship?: No Current Relationship Homicidal Assessment: Do you have thoughts of harming others: None Do you have a plan to hurt others: No Plan Do you have the means to hurt others: No Nutrition Assessment: Recently lost weight without trying: No Eating poorly because of decreased appetite: No Patient : No Occupation Assessmet: service: No Current occupational status: retired Home Medications and Allergies Home Medications Medication Instructions Recorded Confirmed Type prednisone 10 mg tablet 10 mg PO BID PRN Wheezing 03/14/22 03/14/22 History Allergies Allergy/AdvReac Type Severity Reaction Status Date / Time latex [LATEX] Allergy Severe RASH, Verified 03/14/22 11:32 DIFFICULTY BREATHING cortisone [Cortisone] Allergy Mild HIVES Verified 03/14/22 11:32 Physical Exam Vital signs: Vital Signs Temp 97.5 F 03/14/22 11:25 Pulse 83 03/14/22 11:25 Resp 14 03/14/22 11:25 BP 154/72 H 03/14/22 11:25 Pulse Ox 97 03/14/22 11:25 O2 Del Method 03/14/22 11:25 Intake & Output 03/13/22 03/14/22 03/14/22 18:59 06:59 18:59 Other: Weight 60.2 kg [place] Weight in Grams [id number] Weight 60.2 kg - Constitutional Present: no acute distress - Routine HEENT Exam Head: Present: normal inspection ENT: Present: mucous membranes moist - Routine Neck Exam Present: supple - Routine Respiratory Exam Present: CTAB - Routine Cardiovascular Exam Cardiovascular: Present: RRR, S1, S2 - Routine Abdominal Exam Present: nontender. Absent: organomegaly - Routine Extremities Exam Present: nontender - Routine Skin Exam Present: intact - Routine Neurological Exam Present: alert, oriented X3 - Detailed Neurological Exam: Coma Scale Eye Opening: Spontaneous (4) Verbal Response: Oriented (5) Motor Response: Obeys commands (6) [place] Coma Scale Total: 15 - Routine Psychiatric Exam Present: normal affect Hem/Onc Consult Result - Labs CBC & Chem 7: 03/14/22 12:18 03/14/22 12:18 Assessment and Plan Patient Active problem list reviewed?: Yes (1) Mass of left parotid gland Status: Acute Assessment and plan: 81-year-old lady who noted left parotid mass about a year ago. The size has been fluctuating. Recent imaging revealed: Ultrasound of the neck from 02/10 revealed: Left submandibular mass and smaller similar nodule/lymph node correlate with the palpable lump demonstrates abnormal appearance. Malignancy cannot be excluded. Further evaluation with a contrast-enhanced CT scan of the neck soft tissues is recommended. CT scan of the Soft tissue of the head and neck from 02/28: 1. 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 It is well-defined, but has heterogenous enhancement. It may be consistent with benign parotid gland tumor such as a pleomorphic adenoma or Warthin's tumor, but a more aggressive tumor such as a mucoepidermoid carcinoma, adenoid cystic carcinoma or lymphoepithelial carcinoma should also be considered. There is no cervical lymphadenopathy. 2. The larynx is suboptimally visualized as the vocal folds are opposed and there is equivocal loss of fat in the left aryepiglottic fold. This could be correlated clinically. 3. There is extensive opacification of the sphenoid and frontal sinuses bilaterally. PLAN: Will refer for further ENT evaluation for surgical resection. An appointment will be set up at [facility], with Dr. Bonilla. She will return in 1 month for a follow-up visit. All her and her daughter's questions were answered to her satisfaction. Thank you, Cc: Dr. Cunningham. - Time Spent With Patient Time Spent with Patient (in minutes): 30
[2022-03-14 12:20] LABS: MANUAL DIFF FLAG NO
[2022-03-14 12:26] LABS: Basophils Absolute Auto 0.1 X10*3/uL (0.0-0.2); Basophils Percent Auto 0.8 % (0-2); Eosinophils Absolute Auto 1.6 X10*3/uL (0.0-0.4); Eosinophils Percent Auto 13.6 % (0-4); Hematocrit 39.5 % (37.0-47.0); Hemoglobin 12.6 g/dl (12.0-16.0); Imm Gran Abs Auto 0.04 X10*3/uL (0.00-0.03); Imm Gran Pct Auto 0.3 % (0.0-0.4); Lymphocytes Absolute Auto 2.6 X10*3/uL (1.2-4.9); Lymphocytes Percent Auto 22.3 % (20-40); Mean Corpuscular HGB Conc 31.9 g/dl (31.0-35.0); Mean Corpuscular Hemoglobin 28.4 pg (27.0-33.0); Mean Corpuscular Volume 89.2 fL (80.0-98.0); Mean Platelet Volume 10.7 fL (9.4-12.3); Monocytes Absolute Auto 0.9 X10*3/uL (0.1-1.2); Monocytes Percent Auto 7.3 % (2-11); Neutrophils Absolute Auto 6.6 x10*3/uL (2.0-8.3); Neutrophils Percent Auto 55.7 % (45-73); Platelet Count 245 X10*3/uL (160-400); Red Blood Count 4.43 X10*6/uL (4.20-5.50); Red Cell Distribution Width 14.1 % (11.0-16.0); White Blood Count 11.8 X10*3/uL (4.8-10.8)
[2022-03-14 12:45] LABS: Alanine Aminotransferase 14 U/L (0-31); Albumin Level 3.8 g/dL (3.5-5.0); Alkaline Phosphatase 72 U/L (39-117); Anion Gap 15 (12-20); Aspartate Amino Transferase 18 U/L (5-31); Bilirubin Total 0.4 mg/dL (0.0-1.0); Blood Urea Nitrogen 23 mg/dL (9-16); Calcium 9.3 mg/dL (8.4-10.2); Carbon Dioxide 25 mmol/L (22-29); Chloride 104 mmol/L (96-108); Creatinine Clr Calc Pharmacy 34.2; Estimated Glomerular Filt Rate 58; Glucose Random 122 mg/dL (60-115); Lactate Dehydrogenase 203 U/L (122-220); Potassium 3.7 mmol/L (3.3-5.1); Sodium 140 mmol/L (135-145); Total Protein 6.8 g/dL (6.5-8.0)
--- NOTE | 2022-03-14 16:33 | MHC.HEMONCMA ---
Pt was in for consult. Clinical summary reviewed and updated, VSS. Labs were drawn. Pt to return in 1 month.
--- NOTE | 2022-03-16 11:10 | MHC.HEMONCMA ---
FAXED OFFICE NOTES WITH ALL SCANS, U/S OVER TO DR. AGUAYO [facility] AT [phone], FAX [phone]
== END | disposition home or self-care (01) ==
LOC: HO.ONC 03-14 11:08
PROVIDERS: PCP Internal Medicine; Referring Provider Nurse Practitioner Family; Visit Provider Internal Medicine Medical Oncology
DX: K11.8 Other diseases of salivary glands (principal); I10 Essential (primary) hypertension
CPT/HCPCS: 36415; 80053; 83615; 85025; 99204